=== PATIENT | female | born 2000 | race Caucasian/White ===

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

== ENCOUNTER 2021-06-03 21:33 | Emergency (ER) | payer MEDICAID ==
[2021-06-04] MEDS ORDERED: SODIUM CHLORIDE 0.9% 1000 ML 1,000 ML IV ONE (05:14)
--- NOTE | 2021-06-04 05:27 | Event Note ---
ED Screening Note Date of service: 06/04/21 Time: 05:17 ED Screening Note: Patient is a G2, who presents for right flank pain radiating to right lower extremity x1 week. Patient denies recent fall injury or trauma. Pain is described as 4/10 aching. There is no dysuria frequency or urgency there is no vaginal discharge no vaginal bleeding. Patient denies fevers or chills no vomiting. This initial assessment/diagnostic orders/clinical plan/treatment(s) is/are subject to change based on patients health status, clinical progression and re- assessment by fellow clinical providers in the ED. Further treatment and workup at subsequent clinical providers discretion. Patient/guardian urged not to elope from the ED as their condition may be serious if not clinically assessed and managed. Initial orders include: cbc, cmp, ua, hcg quant, US OB,
--- NOTE | 2021-06-04 06:17 | Ultrasound Report ---
ULTRASOUND OBSTETRIC INDICATION / CLINICAL INFORMATION: abd pos preg. Clinical Gestational Age (GA) in weeks, days: 13, 6 TECHNIQUE: Transabdominal. COMPARISON: None available. FINDINGS: GESTATIONAL SAC: Well-defined oval shape and intrauterine in location. YOLK SAC: Not seen EMBRYO/FETUS: No significant abnormality. - [employer] Length = 8.7 cm = 14, 4 weeks, days - Heart Rate, beats per minute (if present) = 168 ADNEXA: No significant abnormality. FREE FLUID: None. ADDITIONAL FINDINGS: There is a placental cassidy at the lower edge of the placenta. IMPRESSION: 1. Single, living intrauterine with estimated sonographic age of 14, 4 weeks, days. heart tones are noted at 168 bpm Signer Name: Cornell East DO Signed: 06/04/2021 6:13 AM Workstation Name: [id number]
[2021-06-04 06:21] LABS: Basophils % (Auto) 0.6 % (0.0-1.8); Eosinophils % (Auto) 0.4 % (0.0-4.3); Hematocrit 35.3 % (30.3-42.9); Hemoglobin 11.7 gm/dl (10.1-14.3); Lymphocytes # (Auto) 1.1 K/mm3 (1.2-5.4); Lymphocytes % (Auto) 20.9 % (13.4-35.0); Mean Corpuscular HGB Conc 33 % (30-34); Mean Corpuscular Volume 91 fl (79-97); Monocytes # (Auto) 0.4 K/mm3 (0.0-0.8); Monocytes % (Auto) 8.4 % (0.0-7.3); Platelet Count 204 K/mm3 (140-440); Red Blood Count 3.87 M/mm3 (3.65-5.03); Red Cell Distribution Width 12.6 % (13.2-15.2)
[2021-06-04 06:39] LABS: Alanine Aminotransferase 33 units/L (7-56); Albumin 4.3 g/dL (3.9-5); Blood Urea Nitrogen 5 mg/dL (7-17); Calcium 9.5 mg/dL (8.4-10.2); Hemolysis Index 5
[2021-06-04 06:40] LABS: BUN/Creatinine Ratio 10
[2021-06-04] MEDS ORDERED: ACETAMINOPHEN 500 MG TAB PO ONE (07:46)
--- NOTE | 2021-06-04 07:47 | Emergency Department Report ---
ED Abdominal Pain HPI - General Chief Complaint: Abdominal Pain Stated Complaint: ABD/BACK PAIN Time Seen by Provider: 06/04/21 07:42 Source: patient Mode of arrival: Ambulatory Limitations: No Limitations - History of Present Illness Initial Comments: Patient is a G2, who presents for right flank pain radiating to right lower extremity x1 week. She is currently approximately 14 weeks. Patient denies recent fall injury or trauma. Pain is described as 4/10 aching. There is no dysuria frequency or urgency there is no vaginal discharge no vaginal bleeding. She denies associated fever, chills, night sweats, headache, dizziness, blurry vision, nausea, vomit, diarrhea, chest pain, shortness of breath, weakness or any other associated symptoms. - Related Data Previous Rx's Medication Instructions Recorded Last Taken Type Vit-Fe Fumar-FA [ 1 tab PO QDAY #30 tablet 02/13/19 Unknown Rx Vitamin] Ferrous Sulfate [Feosol 325 MG tab] 325 mg PO BID #60 tablet 08/14/19 Unknown Rx Ibuprofen [Motrin] 800 mg PO Q8HR PRN #30 tablet 08/14/19 Unknown Rx Acetaminophen [Acetaminophen TAB] 650 mg PO Q6HR PRN #30 tablet 06/04/21 Unknown Rx Allergies Allergy/AdvReac Type Severity Reaction Status Date / Time No Known Allergies Allergy Verified 06/04/21 00:00 ED Review of Systems ROS: Stated complaint: ABD/BACK PAIN Other details as noted in HPI Constitutional: denies: chills, fever Eyes: denies: eye pain, eye discharge, vision change ENT: denies: ear pain, throat pain Respiratory: denies: cough, shortness of breath, wheezing Cardiovascular: denies: chest pain, palpitations Endocrine: no symptoms reported Gastrointestinal: denies: abdominal pain, nausea, diarrhea Genitourinary: denies: urgency, dysuria, discharge Musculoskeletal: denies: back pain, joint swelling, arthralgia Skin: denies: rash, lesions Neurological: denies: headache, weakness, paresthesias Psychiatric: denies: anxiety, depression Hematological/Lymphatic: denies: easy bleeding, easy bruising ED Past Medical Hx - Past Medical History Hx Hypertension: No Hx Diabetes: No Hx Deep Vein Thrombosis: No Hx Renal Disease: No Hx Sickle Cell Disease: No Hx Seizures: No Hx Asthma: No - Surgical History Past Surgical History?: No - Social History Smoking Status: Never Smoker - Medications Home Medications: Home Medications Medication Instructions Recorded Confirmed Last Taken Type Vit-Fe Fumar-FA [ 1 tab PO QDAY #30 tablet 02/13/19 08/13/19 Unknown Rx Vitamin] Ferrous Sulfate [Feosol 325 MG tab] 325 mg PO BID #60 tablet 08/14/19 Unknown Rx Ibuprofen [Motrin] 800 mg PO Q8HR PRN #30 tablet 08/14/19 Unknown Rx Acetaminophen [Acetaminophen TAB] 650 mg PO Q6HR PRN #30 tablet 06/04/21 Unknown Rx ED Physical Exam - General Limitations: No Limitations General appearance: alert, in no apparent distress - Head Head exam: Present: atraumatic, normocephalic - Eye Eye exam: Present: normal appearance, PERRL, EOMI Pupils: Present: normal accommodation - ENT ENT exam: Present: normal exam, normal orophraynx, mucous membranes moist - Neck Neck exam: Present: normal inspection, full ROM. Absent: tenderness, meningismus - Respiratory Respiratory exam: Present: normal lung sounds bilaterally. Absent: respiratory distress, wheezes, rales, rhonchi, stridor - Cardiovascular Cardiovascular Exam: Present: regular rate, normal rhythm. Absent: systolic murmur, diastolic murmur, rubs, gallop - GI/Abdominal GI/Abdominal exam: Present: soft, normal bowel sounds. Absent: distended, tenderness, guarding, rigid - Extremities Exam Extremities exam: Present: normal inspection, full ROM, normal capillary refill. Absent: tenderness, calf tenderness - Back Exam Back exam: Present: normal inspection, full ROM. Absent: tenderness, CVA tenderness (R), CVA tenderness (L) - Neurological Exam Neurological exam: Present: alert, oriented X3 - Psychiatric Psychiatric exam: Present: normal affect, normal mood - Skin Skin exam: Present: warm, dry, intact, normal color. Absent: rash ED Course Vital Signs 06/03/21 23:58 Temperature 100.3 F H Pulse Rate 143 H Respiratory 17 Rate Blood Pressure 104/46 O2 Sat by Pulse 99 Oximetry - Reevaluation(s) Reevaluation #1: 06/04/21 07:47 Patient well-appearing, nontoxic, ultrasound shows viable intrauterine . Lab work is relatively unremarkable. Urine is pending. Patient given IV fluids and Tylenol and suspect tachycardia is related to fever possibly dehydration. 06/04/21 08:15 The patient's urine relatively normal. I repeated her vitals and her heart rate returned to a much more reasonable level at 104. O2 saturation was normal. Patient felt much better after IV fluids and I will discharge in stable condition home with follow-up with her [employer]. ED Medical Decision Making - Lab Data Result diagrams: 06/04/21 05:47 06/04/21 05:47 Lab Results 06/04/21 06/04/21 06/04/21 Range/Units 05:47 05:47 05:47 WBC 5.3 (4.5-11.0) K/mm3 RBC 3.87 (3.65-5.03) M/mm3 Hgb 11.7 (10.1-14.3) gm/dl Hct 35.3 (30.3-42.9) % MCV 91 (79-97) fl MCH 30 (28-32) pg MCHC 33 (30-34) % RDW 12.6 L (13.2-15.2) % Plt Count 204 (140-440) K/mm3 Lymph % (Auto) 20.9 (13.4-35.0) % Ralls % (Auto) 8.4 H (0.0-7.3) % Eos % (Auto) 0.4 (0.0-4.3) % Baso % (Auto) 0.6 (0.0-1.8) % Lymph # (Auto) 1.1 L (1.2-5.4) K/mm3 Ralls # (Auto) 0.4 (0.0-0.8) K/mm3 Eos # (Auto) 0.0 (0.0-0.4) K/mm3 Baso # (Auto) 0.0 (0.0-0.1) K/mm3 Seg Neutrophils % 69.7 (40.0-70.0) % Seg Neutrophils # 3.7 (1.8-7.7) K/mm3 Sodium 138 (137-145) mmol/L Potassium 3.6 (3.6-5.0) mmol/L Chloride 101.4 (98-107) mmol/L Carbon Dioxide 22 (22-30) mmol/L Anion Gap 18 mmol/L BUN 5 L (7-17) mg/dL Creatinine 0.5 L (0.6-1.2) mg/dL Estimated GFR > 60 ml/min BUN/Creatinine Ratio 10 % Glucose 132 H (65-100) mg/dL Calcium 9.5 (8.4-10.2) mg/dL Total Bilirubin 0.20 (0.1-1.2) mg/dL AST 31 (5-40) units/L ALT 33 (7-56) units/L Alkaline Phosphatase 73 (35-129) units/L Total Protein 7.7 (6.3-8.2) g/dL Albumin 4.3 (3.9-5) g/dL Albumin/Globulin Ratio 1.3 % Lipase 25 (13-60) units/L HCG, Quant 65222 H (0-4) mIU/mL - Radiology Data Radiology results: report reviewed, image reviewed atient: MARIA EUGENIA NULL MR#: [id number] : 2000 Acct:[id number] Age/Sex: 21 / F ADM Date: 06/03/21 Loc: ED Attending Dr: Ordering Physician: KEN REBOLLAR NP Date of Service: 06/04/21 Procedure(s): US OB <= 14 weeks fetus Accession Number(s): [id number] cc: KEN REBOLLAR NP ULTRASOUND OBSTETRIC INDICATION / CLINICAL INFORMATION: abd pos preg. Clinical Gestational Age (GA) in weeks, days: 13, 6 TECHNIQUE: Transabdominal. COMPARISON: None available. FINDINGS: GESTATIONAL SAC: Well-defined oval shape and intrauterine in location. YOLK SAC: Not seen EMBRYO/FETUS: No significant abnormality. - [place]ump Length = 8.7 cm = 14, 4 weeks, days - Heart Rate, beats per minute (if present) = 168 ADNEXA: No significant abnormality. FREE FLUID: None. ADDITIONAL FINDINGS: There is a placental cassidy at the lower edge of the placenta. IMPRESSION: 1. Single, living intrauterine with estimated sonographic age of 14, 4 weeks, days. heart tones are noted at 168 bpm Signer Name: Cornell Alamo DO Signed: 06/04/2021 6:13 AM Workstation Name: [id number] Transcribed By: NS Dictated By: CORNELL ALAMO DO Electronically Authenticated By: CORNELL ALAMO DO Signed Date/Time: 06/04/21 0613 - Medical Decision Making Patient nontoxic no acute distress. Vitals improved with IV fluids. Urine consistent with some dehydration but no infection. Labs were otherwise relatively normal. Ultrasound showed a viable intrauterine . Patient will be given Tylenol for pain, antiemetics and recommend outpatient follow-up with her [employer]. Return to emerge part any change or worsening symptoms. She verbalized understand the diagnosis, treatment plan and follow-up instructions and all of her questions were answered. - Differential Diagnosis UTI, viral syndrome, dehydration Critical care attestation.: If time is entered above; I have spent that time in minutes in the direct care of this critically ill patient, excluding procedure time. ED Disposition Clinical Impression: Abdominal pain during in second trimester Disposition: 01 HOME / SELF CARE / HOMELESS Is pt being admited?: No Condition: Stable Instructions: Abdominal Pain (ED) Prescriptions: Acetaminophen [Acetaminophen TAB] 650 mg PO Q6HR PRN #30 tablet PRN Reason: Pain Referrals: PRIMARY CAREMD [Primary Care Provider] - 3-5 Days [facility] [Provider Group] - 3-5 Days Forms: Work/School Release Form(ED) Time of Disposition: 08:52
[2021-06-04 07:55] LABS: Bacteria,Urine 1+ /HPF (Negative); Bilirubin,Urine NEG (Negative); Blood,Urine NEG (Negative); Color,Urine Yellow (Yellow); Mucus,Urine FEW /HPF; Protein,Urine <15 mg/dL mg/dL (Negative); Urobilinogen,Urine < 2.0 mg/dL (<2.0)
[2021-06-04 09:10] VITALS: BP 96/58
== END 2021-06-04 09:11 | disposition home or self-care (01) ==
LOC: ED 21:33
DX: O26.892 Other specified pregnancy related conditions, second trimester (principal); R10.30 Lower abdominal pain, unspecified; Z3A.14 14 weeks gestation of pregnancy; Z79.899 Other long term (current) drug therapy
CPT/HCPCS: 36415; 76801; 80053; 81001; 83690; 84702; 85025; 96360; 99284; J7030; Q0162

== ENCOUNTER 2021-11-16 18:43 | Outpatient (CLI) | payer MEDICAID ==
[2021-11-16 23:37] VITALS: BP 122/59
== END 2021-11-16 23:37 | disposition home or self-care (01) ==
LOC: TRG 18:43 → LD 18:45 → TRG 23:37
PROVIDERS: ATTEND Obstetrics & Gynecology
DX: O26.93 Pregnancy related conditions, unspecified, third trimester (principal); R10.2 Pelvic and perineal pain; Z3A.37 37 weeks gestation of pregnancy
CPT/HCPCS: 59025

== ENCOUNTER 2021-12-24 12:57 | Emergency (ER) | payer MEDICAID ==
[2021-12-24 13:05] VITALS: BP 124/63
== END 2021-12-24 17:05 | disposition left against medical advice (07) ==
LOC: ED 12:57
DX: R10.9 Unspecified abdominal pain (principal); Z53.21 Procedure and treatment not carried out due to patient leaving prior to being seen by health care provider

== ENCOUNTER 2021-12-29 08:00 | Inpatient (IN) | payer MEDICAID ==
[2021-12-29] MEDS ORDERED: SODIUM CHLORIDE 0.9% 1000 ML 1,000 ML IV ONE (08:20)
[2021-12-29 08:35] LABS: Mucus,Urine 1+ /HPF
[2021-12-29 08:42] LABS: Color,Urine Amber (Yellow)
[2021-12-29 08:43] LABS: Bilirubin,Urine Moderate (Negative); Blood,Urine Negative (Negative); PH,Urine 6.5 (5.0-7.0); Protein,Urine <30 mg dL mg/dL (Negative); Urobilinogen,Urine < 2.0 mg/dL (<2.0)
[2021-12-29 08:46] LABS: Ictotest,Urine Positive (Negative)
[2021-12-29 11:06] LABS: Basophils # (Auto) 0.1 K/mm3 (0.0-0.1); Eosinophils % (Auto) 0.2 % (0.0-4.3); Hematocrit 39.8 % (30.3-42.9); Lymphocytes # (Auto) 1.1 K/mm3 (1.2-5.4); Lymphocytes % (Auto) 9.6 % (13.4-35.0); Mean Corpuscular HGB Conc 33 % (30-34); Mean Corpuscular Volume 81 fl (79-97); Monocytes # (Auto) 0.4 K/mm3 (0.0-0.8); Monocytes % (Auto) 3.4 % (0.0-7.3); Platelet Count 247 K/mm3 (140-440); Red Cell Distribution Width 19.1 % (13.2-15.2)
[2021-12-29 11:19] LABS: Alanine Aminotransferase 380 units/L (7-56); Albumin 4.4 g/dL (3.9-5); BUN/Creatinine Ratio 16; Blood Urea Nitrogen 8 mg/dL (7-17); Calcium 9.1 mg/dL (8.4-10.2); Hemolysis Index 5
[2021-12-29] MEDS ORDERED: MORPHINE 4 MG/1 ML INJ IV ONE (12:15)
[2021-12-29] MEDS ORDERED: ONDANSETRON 4 MG/2 ML INJ IV ONE (12:15)
--- NOTE | 2021-12-29 15:01 | Ultrasound Report ---
LIMITED RUQ ABDOMINAL ULTRASOUND INDICATION: RUQ pain, elevated LFT's. COMPARISON: No relevant prior imaging study available. FINDINGS: Pancreas: Visualized portions show no significant abnormality. Abdominal Aorta: No significant abnormality. IVC: No significant abnormality. Liver: The liver measures 16 cm in length. Diffusely increased hepatic echogenicity which typically i ndicates hepatic steatosis.. Normal hepatopedal blood flow in the main portal vein. Gallbladder: Gallstones in the gallbladder without wall thickening or distention. Bile ducts: Mild ductal dilation. Common bile duct measures 9 mm. Right kidney: No significant abnormality visualized.. Free fluid: None. Additional Findings: None. IMPRESSION: 1. Biliary ductal dilation; correlation with bilirubin level is recommended. 2. Cholelithiasis without evidence of acute cholecystitis. 3. Hepatic steatosis. Signer Name: Bill Rios MD Signed: 12/29/2021 1:32 PM Workstation Name: [id number]
--- NOTE | 2021-12-29 16:46 | Emergency Department Report ---
ED Abdominal Pain HPI - General Chief Complaint: Abdominal Pain Stated Complaint: STOMACH PAIN Time Seen by Provider: 12/29/21 11:46 Source: patient Mode of arrival: Ambulatory Limitations: No Limitations - History of Present Illness Initial Comments: 21-year-old female with no past medical history who is 1 month with vaginal presents to the emergency department for evaluation of 1 week history of intermittent right upper quadrant pain. She states that the pain has been getting progressively worse since Wednesday, she states that she was seen by her primary care provider who summer blood from her being called and told her this morning that she had elevated LFTs. She did not know the exact values. She states that for the past 2 days that she has been unable to eat solid foods because whenever she would eat she has severe pain to her epigastric area and right upper quadrant. She states that she has had some nausea and vomiting but denies fever, dysuria, and vaginal discharge. MD Complaint: abdominal pain -: Gradual, week(s) (1) Location: RUQ, epigastric Radiation: none Migration to: no migration Severity scale (0 -10): 8 Quality: aching Consistency: intermittent Worsens With: eating Associated Symptoms: nausea, vomiting. denies: diarrhea, fever, chills, dysu nevaeh, hematemesis, hematochezia, melena, hematuria, anorexia, syncope - Related Data Previous Rx's Medication Instructions Recorded Last Taken Type Vit-Fe Fumar-FA [ 1 tab PO QDAY #30 tablet 02/13/19 11/21/21 10:00 Rx Vitamin] HYDROcodone/APAP 5-325 [Festus 1 each PO Q6HR PRN #15 tablet 11/24/21 Unknown Rx 5/325] Ibuprofen [Motrin] 800 mg PO Q8HR PRN #30 tablet 11/24/21 Unknown Rx Allergies Allergy/AdvReac Type Severity Reaction Status Date / Time No Known Allergies Allergy Verified 12/29/21 12:11 ED Review of Systems ROS: Stated complaint: STOMACH PAIN Other details as noted in HPI Comment: All other systems reviewed and negative Constitutional: denies: chills, fever, malaise, weakness Eyes: denies: eye pain, vision change ENT: denies: congestion Respiratory: denies: cough, shortness of breath, SOB with exertion, SOB at rest, stridor Cardiovascular: denies: chest pain, palpitations, dyspnea on exertion Gastrointestinal: abdominal pain, nausea, vomiting. denies: diarrhea, hematemesis, melena, hematochezia Genitourinary: denies: urgency, dysuria, frequency, hematuria, discharge Musculoskeletal: denies: back pain Skin: denies: rash, lesions Neurological: denies: headache, weakness ED Past Medical Hx - Past Medical History Hx Hypertension: No Hx Congestive Heart Failure: No Hx Diabetes: No Hx Deep Vein Thrombosis: No Hx Renal Disease: No Hx Sickle Cell Disease: No Hx Seizures: No Hx Asthma: No Hx COPD: No Hx HIV: No - Surgical History Past Surgical History?: No - Social History Smoking Status: Never Smoker - Medications Home Medications: Home Medications Medication Instructions Recorded Confirmed Last Taken Type Vit-Fe Fumar-FA [ 1 tab PO QDAY #30 tablet 02/13/19 11/22/21 11/21/21 10:00 Rx Vitamin] HYDROcodone/APAP 5-325 [Festus 1 each PO Q6HR PRN #15 tablet 11/24/21 Unknown Rx 5/325] Ibuprofen [Motrin] 800 mg PO Q8HR PRN #30 tablet 11/24/21 Unknown Rx ED Physical Exam - General Limitations: No Limitations General appearance: alert, in no apparent distress - Head Head exam: Present: atraumatic, normocephalic - Eye Eye exam: Present: normal appearance. Absent: conjunctival injection, periorbital swelling, periorbital tenderness - Neck Neck exam: Present: normal inspection, full ROM. Absent: tenderness, lymphadenopathy - Respiratory Respiratory exam: Present: normal lung sounds bilaterally. Absent: respiratory distress, wheezes, rales, rhonchi, stridor, chest wall tenderness - Cardiovascular Cardiovascular Exam: Present: tachycardia, normal heart sounds - GI/Abdominal GI/Abdominal exam: Present: soft, tenderness (Epigastric area and right upper quadrant.), normal bowel sounds. Absent: distended, guarding, rebound, rigid - Extremities Exam Extremities exam: Present: normal inspection, full ROM, normal capillary refill. Absent: tenderness, pedal edema, joint swelling, calf tenderness - Back Exam Back exam: Present: normal inspection. Absent: CVA tenderness (R), CVA tenderness (L), vertebral tenderness - Neurological Exam Neurological exam: Present: alert, oriented X3 - Psychiatric Psychiatric exam: Present: normal affect, normal mood - Skin Skin exam: Present: warm, dry, intact, normal color ED Course Vital Signs 12/29/21 12/29/21 08:03 09:47 Temperature 97.9 F Pulse Rate 106 H 83 Respiratory 14 Rate Blood Pressure 88/56 Blood Pressure 125/60 [Left] O2 Sat by Pulse 98 Oximetry ED Medical Decision Making - Lab Data Result diagrams: 12/29/21 10:01 12/29/21 10:01 - Radiology Data Radiology results: report reviewed, image reviewed Ultrasound right upper quadrant: FINDINGS: Pancreas: Visualized portions show no significant abnormality. Abdominal Aorta: No significant abnormality. IVC: No significant abnormality. Liver: The liver measures 16 cm in length. Diffusely increased hepatic echogenicity which typically indicates hepatic steatosis.. Normal hepatopedal blood flow in the main portal vein. Gallbladder: Gallstones in the gallbladder without wall thickening or distention. Bile ducts: Mild ductal dilation. Common bile duct measures 9 mm. Right kidney: No significant abnormality visualized.. Free fluid: None. Additional Findings: None. IMPRESSION: 1. Biliary ductal dilation; correlation with bilirubin level is recommended. 2. Cholelithiasis without evidence of acute cholecystitis. 3. Hepatic steatosis. - Medical Decision Making 21-year-old female with no past medical history who is 1 month with vaginal presents to the emergency department for evaluation of 1 week history of intermittent right upper quadrant pain. She states that the pain has been getting progressively worse since Wednesday, she states that she was seen by her primary care provider who summer blood from her being called and told her this morning that she had elevated LFTs. She did not know the exact values. She states that for the past 2 days that she has been unable to eat solid foods because whenever she would eat she has severe pain to her epigastric area and right upper quadrant. She states that she has had some nausea and vomiting but denies fever, dysuria, and vaginal discharge. Elevated LFTs and lipase. Ultrasound positive for gallstones, dilated common bile duct, and hepatic steatosis. Case discussed with Dr. Sky, hospitalist nocturnist physician, who advised the patient be admitted for gallstone pancreatitis. Spoke with Dr. Celeste, hospitalist, who is going to admit the patient for GI to follow-up and see later. CT scan of abdomen and pelvis and amylase pending. Plan of care reviewed with patient and she verbalized und erstanding of and agreement with. Critical care attestation.: If time is entered above; I have spent that time in minutes in the direct care of this critically ill patient, excluding procedure time. ED Disposition Clinical Impression: Gallstone pancreatitis, Elevated LFTs Disposition: ADMITTED INPATIENT Is pt being admited?: Yes Condition: Stable Instructions: Abdominal Pain (ED) Referrals: SUSANA OSORIO MD [Primary Care Provider] - 3-5 Days
--- NOTE | 2021-12-29 17:40 | Cat Scan Report ---
CT abdomen pelvis wo con INDICATION: elevated LFTs and lipase. COMPARISON: Ultrasound December 29 2021 TECHNIQUE: Abdominal and pelvic CT exam performed. All CT scans at this location are performed using CT dose reduction for ALARA by means of automated exposure control. FINDINGS: CT ABDOMEN and PELVIS: Lung Bases: Minimal bibasilar atelectasis. Liver: Decreased attenuation consistent with mild diffuse hepatic steatosis. Biliary: Common bile duct measures approximately 1 cm. Spleen: No significant abnormality. Pancreas: There is peripancreatic stranding. No organized collection. Adrenals: No significant abnormality. Kidneys: No significant abnormality. Lymphatics: No lymphadenopathy. Vasculature: No significant abnormality. Bowel: No significant abnormality. Normal appendix. Pelvis: No significant abnormality. Osseous Structures: No aggressive osseous lesion. Additional Findings: None IMPRESSION: 1. Acute pancreatitis. 2. No calcified gallstones on CT but there are gallstones seen on ultrasound and the common bile duct measures approximately 1 cm. Please see that report. 3. Mild hepatic steatosis. Signer Name: Izaiah Martin MD Signed: 12/29/2021 5:35 PM Workstation Name: [id number]
[2021-12-29] MEDS ORDERED: ACETAMINOPHEN 325 MG TAB PO PRN (22:22)
[2021-12-29] MEDS ORDERED: ONDANSETRON 4 MG/2 ML INJ IV PRN (22:22)
--- NOTE | 2021-12-29 22:22 | History and Physical Report ---
History of Present Illness Date of examination: 12/29/21 Date of admission: 07/01/2021 Chief complaint: Right upper quadrant pain for 1 day History of present illness: 21-year-old male with no significant past medical history: 1 month status post comes to the emergency room for evaluation of 1 week history of right upper quadrant pain. Right upper quadrant pain is intermittent. Getting progressively worse. Pain is about 8 on a scale of 1-10. Associated with nausea.. Patient saw primary care stated was emergency room because of elevated LFTs. Patient does not have lab results with her. Pain is in the epigastric and right upper quadrant region. Eating is an exacerbating factor. Pain is sharp. No fever. No chills. Nausea present. Vomiting couple times. - Past Medical History --No - Surgical History Past Surgical History?: No - Social History Smoking Status: Never Smoker Review of Systems ROS: Stated complaint: STOMACH PAIN Other details as noted in HPI Comment: All other systems reviewed and negative Constitutional: denies: chills, fever, malaise, weakness Eyes: denies: eye pain, vision change ENT: denies: congestion Respiratory: denies: cough, shortness of breath, SOB with exertion, SOB at rest, stridor Cardiovascular: denies: chest pain, palpitations, dyspnea on exertion Gastrointestinal: abdominal pain, nausea, vomiting. denies: diarrhea, hematemesis, melena, hematochezia Genitourinary: denies: urgency, dysuria, frequency, hematuria, discharge Musculoskeletal: denies: back pain Skin: denies: rash, lesions Neurological: denies: headache, weakness Medications and Allergies Allergies Allergy/AdvReac Type Severity Reaction Status Date / Time No Known Allergies Allergy Verified 12/29/21 12:11 Home Medications Medication Instructions Recorded Confirmed Last Taken Type Vit-Fe Fumar-FA [ 1 tab PO QDAY #30 tablet 02/13/19 11/22/21 11/21/21 10:00 Rx Vitamin] HYDROcodone/APAP 5-325 [Onida 1 each PO Q6HR PRN #15 tablet 11/24/21 Unknown Rx 5/325] Ibuprofen [Motrin] 800 mg PO Q8HR PRN #30 tablet 11/24/21 Unknown Rx Active Meds: Active Medications Sodium Chloride (Nacl 0.9% 1000 Ml) 1,000 mls @ 200 mls/hr IV DIRECT AMARJIT Exam - Constitutional Vitals: Temp Pulse Resp BP Pulse Ox 97.9 F 83 14 125/60 98 12/29/21 08:03 12/29/21 09:47 12/29/21 08:03 12/29/21 09:47 12/29/21 08:03 General appearance: Present: no acute distress, well-nourished - EENT Eyes: Present: PERRL ENT: hearing intact, clear oral mucosa - Neck Neck: Present: supple, normal ROM - Respiratory Respiratory effort: normal Respiratory: bilateral: CTA - Cardiovascular Heart rate: 78 Rhythm: regular Heart Sounds: Present: S1 & S2. Absent: rub, click - Extremities Extremities: pulses symmetrical, No edema Peripheral Pulses: within normal limits - Abdominal General gastrointestinal: Present: soft, tender, non-distended, normal bowel sounds Localized gastrointestinal: tender: RUQ, guarding: RUQ, rebound: RUQ Female genitourinary: Present: normal - Integumentary Integumentary: Present: clear, warm, dry - Musculoskeletal Musculoskeletal: gait normal, strength equal bilaterally - Psychiatric Psychiatric: appropriate mood/affect, intact judgment & insight - Neurologic Neurologic: CNII-XII intact, moves all extremities Results - Labs CBC & Chem 7: 12/29/21 10:01 12/29/21 10:01 Labs: Laboratory Last Values WBC 11.9 K/mm3 (4.5-11.0) H 12/29/21 10:01 RBC 4.90 M/mm3 (3.65-5.03) 12/29/21 10:01 Hgb 13.0 gm/dl (10.1-14.3) 12/29/21 10:01 Hct 39.8 % (30.3-42.9) 12/29/21 10:01 MCV 81 fl (79-97) 12/29/21 10:01 MCH 27 pg (28-32) L 12/29/21 10:01 MCHC 33 % (30-34) 12/29/21 10:01 RDW 19.1 % (13.2-15.2) H 12/29/21 10:01 Plt Count 247 K/mm3 (140-440) 12/29/21 10:01 Lymph % (Auto) 9.6 % (13.4-35.0) L 12/29/21 10:01 Wolfe % (Auto) 3.4 % (0.0-7.3) 12/29/21 10:01 Eos % (Auto) 0.2 % (0.0-4.3) 12/29/21 10:01 Baso % (Auto) 1.0 % (0.0-1.8) 12/29/21 10:01 Lymph # (Auto) 1.1 K/mm3 (1.2-5.4) L 12/29/21 10:01 Wolfe # (Auto) 0.4 K/mm3 (0.0-0.8) 12/29/21 10:01 Eos # (Auto) 0.0 K/mm3 (0.0-0.4) 12/29/21 10:01 Baso # (Auto) 0.1 K/mm3 (0.0-0.1) 12/29/21 10:01 Seg Neutrophils % 85.8 % (40.0-70.0) H 12/29/21 10:01 Seg Neutrophils # 10.2 K/mm3 (1.8-7.7) H 12/29/21 10:01 Sodium 141 mmol/L (137-145) 12/29/21 10:01 Potassium 4.0 mmol/L (3.6-5.0) 12/29/21 10:01 Chloride 104.3 mmol/L (98-107) 12/29/21 10:01 Carbon Dioxide 25 mmol/L (22-30) 12/29/21 10:01 Anion Gap 16 mmol/L 12/29/21 10:01 BUN 8 mg/dL (7-17) 12/29/21 10:01 Creatinine 0.5 mg/dL (0.6-1.2) L 12/29/21 10:01 Estimated GFR > 60 ml/min 12/29/21 10:01 BUN/Creatinine Ratio 16 % 12/29/21 10:01 Glucose 109 mg/dL (65-100) H 12/29/21 10:01 Calcium 9.1 mg/dL (8.4-10.2) 12/29/21 10:01 Total Bilirubin 3.50 mg/dL (0.1-1.2) H 12/29/21 10:01 AST 179 units/L (5-40) H 12/29/21 10:01 ALT 380 units/L (7-56) H 12/29/21 10:01 Alkaline Phosphatase 250 units/L (35-129) H 12/29/21 10:01 Total Protein 7.4 g/dL (6.3-8.2) 12/29/21 10:01 Albumin 4.4 g/dL (3.9-5) 12/29/21 10:01 Albumin/Globulin Ratio 1.5 % 12/29/21 10:01 Lipase 3371 units/L (13-60) H 12/29/21 10:01 Urine Color Jody (Yellow) 12/29/21 Unknown Urine Turbidity Clear (Clear) 12/29/21 Unknown Urine pH 6.5 (5.0-7.0) 12/29/21 Unknown Ur Specific Colton 1.010 (1.003-1.030) 12/29/21 Unknown Urine Protein <30 mg dl mg/dL (Negative) 12/29/21 Unknown Urine Glucose (UA) Negative mg/dL (Negative) 12/29/21 Unknown Urine Ketones Negative mg/dL (Negative) 12/29/21 Unknown Urine Blood Negative (Negative) 12/29/21 Unknown Urine Nitrite Negative (Negative) 12/29/21 Unknown Ur Reducing Substances Not Reportable 12/29/21 Unknown Urine Bilirubin Moderate (Negative) 12/29/21 Unknown Urine Ictotest Positive (Negative) 12/29/21 Unknown Urine Urobilinogen < 2.0 mg/dL (<2.0) 12/29/21 Unknown Ur Leukocyte Esterase Small (Negative) 12/29/21 Unknown Urine WBC (Auto) 6.0 /HPF (0.0-6.0) 12/29/21 Unknown Urine RBC (Auto) 22.0 /HPF (0.0-6.0) 12/29/21 Unknown U Epithel Cells (Auto) 17.0 /HPF (0-13.0) H 12/29/21 Unknown Urine Mucus 1+ /HPF 12/29/21 Unknown Short CBC 12/29/21 Range/Units 10:01 WBC 11.9 H (4.5-11.0) K/mm3 Hgb 13.0 (10.1-14.3) gm/dl Hct 39.8 (30.3-42.9) % Plt Count 247 (140-440) K/mm3 BMP 12/29/21 10:01 Sodium 141 Potassium 4.0 Chloride 104.3 Carbon Dioxide 25 BUN 8 Creatinine 0.5 L Glucose 109 H Calcium 9.1 Liver Function 12/29/21 Range/Units 10:01 Total Bilirubin 3.50 H (0.1-1.2) mg/dL AST 179 H (5-40) units/L ALT 380 H (7-56) units/L Alkaline Phosphatase 250 H (35-129) units/L Albumin 4.4 (3.9-5) g/dL Urine 12/29/21 Range/Units Unknown Urine Color Jody (Yellow) Urine pH 6.5 (5.0-7.0) Ur Specific Colton 1.010 (1.003-1.030) Urine Protein <30 mg dl (Negative) mg/dL Urine Glucose (UA) Negative (Negative) mg/dL - Imaging and Cardiology CT scan - abdomen: report reviewed US - abdomen: report reviewed Imaging and Cardiology: Abdominal ultrasound Biliaryductaldilation correlation with bilirubin level is recommended Cholelithiasis without evidence of acute cholecystitis Hepatic steatosis. Abdominal CAT scan Acute pancreatitis No calcified gallstones on CT but there are gallstones and seen on ultrasound and the common bile duct measures approximately 1 cm. Assessment and Plan Advance Directives: Yes (Full code) VTE prophylaxis?: Chemical Plan of care discussed with patient/family: Yes - Patient Problems (1) Acute pancreatitis Current Visit: Yes Status: Acute Qualifiers: Pancreatitis type: biliary Plan to address problem: Possible gallstone induced pancreatitis Total bilirubin and AST ALT elevated Patient has cholelithiasis also Rule out choledocholithiasis (2) Cholelithiasis Current Visit: Yes Status: Chronic Qualifiers: Cholelithiasis location: gallbladder Plan to address problem: Multiple gallstones No acute cholecystitis Surgical consult requested (3) Transaminitis Current Visit: Yes Status: Acute Plan to address problem: GI consult Possible choledocholithiasis MRCP if necessary Repeat LFTs Pain control (4) DVT prophylaxis Current Visit: Yes Status: Acute Plan to address problem: On heparin and GI prophylaxis (5) Advance care planning Current Visit: Yes Status: Acute Plan to address problem: Disease education conducted, care plan discussed, diagnosis discussed, prognosis discussed and patient acknowledges understanding with care plan of 30 minutes
[2021-12-29] MEDS ORDERED: METOCLOPRAMIDE 10 MG/2 ML INJ IV PRN (22:28)
[2021-12-29] MEDS ORDERED: HYDROmorphone 0.5 MG/0.5 ML INJ IV PRN (22:28)
[2021-12-29] MEDS ORDERED: MORPHINE 2 MG/1 ML INJ IV PRN (22:28)
[2021-12-29] MEDS: HEPARIN 5,000 UNIT/1 ML VIAL SUB-Q SCH (23:57)
[2021-12-30] MEDS: FAMOTIDINE 20 MG/2 ML INJ IV SCH ×3 (00:06→21:45)
[2021-12-30] MEDS: PIPERACIL/TAZOBACTA 4.5/NS 100 4.5 GM/100 ML VIAL IV SCH ×2 (01:48→08:23)
[2021-12-30] MEDS: SODIUM CHLORIDE 0.9% 1000 ML 1,000 ML IV SCH ×2 (06:36→21:45)
[2021-12-30 09:05] LABS: Basophils % (Auto) 0.5 % (0.0-1.8); Eosinophils # (Auto) 0.1 K/mm3 (0.0-0.4); Eosinophils % (Auto) 1.4 % (0.0-4.3); Hematocrit 38.1 % (30.3-42.9); Hemoglobin 12.1 gm/dl (10.1-14.3); Lymphocytes # (Auto) 2.2 K/mm3 (1.2-5.4); Lymphocytes % (Auto) 32.1 % (13.4-35.0); Mean Corpuscular HGB Conc 32 % (30-34); Mean Corpuscular Volume 82 fl (79-97); Monocytes # (Auto) 0.4 K/mm3 (0.0-0.8); Monocytes % (Auto) 5.3 % (0.0-7.3); Platelet Count 232 K/mm3 (140-440); Red Blood Count 4.64 M/mm3 (3.65-5.03); Red Cell Distribution Width 19.3 % (13.2-15.2)
[2021-12-30 09:25] LABS: Alanine Aminotransferase 273 units/L (7-56); Albumin 4.3 g/dL (3.9-5); Blood Urea Nitrogen 11 mg/dL (7-17); Calcium 9.1 mg/dL (8.4-10.2); Hemolysis Index 2
[2021-12-30 09:26] LABS: BUN/Creatinine Ratio 18
[2021-12-30] MEDS: HEPARIN 5,000 UNIT/1 ML VIAL SUB-Q SCH ×2 (09:27→21:45)
--- NOTE | 2021-12-30 10:10 | Gastroenterology Consultation ---
History of Present Illness - Reason for Consult Consult date: 12/30/21 gallstone pancreatitis Requesting physician: SUZAN WRIGHT - History of Present Illness The patient is a 21 yo female who presents with ruq/epigastric abd pain for 5 days. Patient had new onset pain last wednesday. no prior similar abd symptoms. worse with po intake during this interim. denies n/v or fevers/chills. found to have abnormal liver enzymes on admission, and acute pancreatitis by labs/ct scan. stones on imaging/US with dilated CBD. feels better today with less abd pain. she recently delivered her new born son 1 month ago. has 2 year old daughter as well. HD stable. Past History Past Medical History: No medical history Past Surgical History: No surgical history Social history: no significant social history Family history: no significant family history Medications and Allergies Allergies Allergy/AdvReac Type Severity Reaction Status Date / Time No Known Allergies Allergy Verified 12/30/21 09:34 Home Medications Medication Instructions Recorded Confirmed Last Taken Type No Known Home Medications [No 12/30/21 12/30/21 Unknown History Reported Home Medications] Active Meds: Active Medications Acetaminophen (Acetaminophen 325 Mg Tab) 650 mg PO Q4H PRN PRN Reason: Pain MILD(1-3)/Fever >100.5/PATRICK Famotidine (Famotidine 20 Mg/2 Ml Inj) 20 mg IV BID [facility] Last Admin: 12/30/21 09:27 Dose: 20 mg Heparin Sodium (Porcine) (Heparin 5,000 Unit/1 Ml Vial) 5,000 unit SUB-Q Q12HR AMARJIT Last Admin: 12/30/21 09:27 Dose: 5,000 unit Hydromorphone HCl (Hydromorphone 0.5 Mg/0.5 Ml Inj) 1 mg IV Q3H PRN PRN Reason: Pain , Severe (7-10) Sodium Chloride (Nacl 0.9% 1000 Ml) 1,000 mls @ 100 mls/hr IV DIRECT [facility] Last Admin: 12/30/21 06:36 Dose: 100 mls/hr Metoclopramide HCl (Metoclopramide 10 Mg/2 Ml Inj) 10 mg IV Q6H PRN PRN Reason: Nausea And Vomiting Morphine Sulfate (Morphine 2 Mg/1 Ml Inj) 2 mg IV Q4H PRN PRN Reason: Pain, Moderate (4-6) Ondansetron HCl (Ondansetron 4 Mg/2 Ml Inj) 4 mg IV Q3H PRN PRN Reason: Nausea And Vomiting Sodium Chloride (Sodium Chloride 0.9% 10 Ml Flush Syringe) 10 ml IV BID AMARJIT Last Admin: 12/30/21 09:27 Dose: 10 ml Sodium Chloride (Sodium Chloride 0.9% 10 Ml Flush Syringe) 10 ml IV PRN PRN PRN Reason: LINE FLUSH Reviewed/updated patient's home and current medications Review of Systems - Review of Systems All systems: negative (per HPI) Exam - Constitutional Vital Signs: Temp Pulse Resp BP Pulse Ox 98.1 F 60 18 102/53 99 12/30/21 07:59 12/30/21 07:59 12/30/21 07:59 12/30/21 07:59 12/30/21 07:59 General appearance: no acute distress - EENT Eyes: PERRL - Neck Neck: supple - Respiratory Respiratory effort: normal Respiratory: bilateral: CTA - Cardiovascular Rhythm: regular Heart Sounds: Present: S1 & S2 - Gastrointestinal General gastrointestinal: Present: soft, tender (mild epigastric ttp), non- distended, normal bowel sounds - Integumentary Integumentary: Present: clear, warm - Neurologic Neurological: alert and oriented x3 - Psychiatric Psychiatric: appropriate mood/affect - Labs CBC & Chem 7: 12/30/21 08:31 12/30/21 08:31 Lab Results: Laboratory Results - last 24 hr 12/29/21 12/29/21 12/30/21 10:01 10:01 08:31 WBC 11.9 H 6.9 RBC 4.90 4.64 Hgb 13.0 12.1 Hct 39.8 38.1 MCV 81 82 MCH 27 L 26 L MCHC 33 32 RDW 19.1 H 19.3 H Plt Count 247 232 Lymph % (Auto) 9.6 L 32.1 Fisher % (Auto) 3.4 5.3 Eos % (Auto) 0.2 1.4 Baso % (Auto) 1.0 0.5 Lymph # (Auto) 1.1 L 2.2 Fisher # (Auto) 0.4 0.4 Eos # (Auto) 0.0 0.1 Baso # (Auto) 0.1 0.0 Seg Neutrophils % 85.8 H 60.7 Seg Neutrophils # 10.2 H 4.2 Sodium 141 Potassium 4.0 Chloride 104.3 Carbon Dioxide 25 Anion Gap 16 BUN 8 Creatinine 0.5 L Estimated GFR > 60 BUN/Creatinine Ratio 16 Glucose 109 H Calcium 9.1 Total Bilirubin 3.50 H AST 179 H ALT 380 H Alkaline Phosphatase 250 H Total Protein 7.4 Albumin 4.4 Albumin/Globulin Ratio 1.5 Lipase 3371 H 12/30/21 08:31 WBC RBC Hgb Hct MCV MCH MCHC RDW Plt Count Lymph % (Auto) Fisher % (Auto) Eos % (Auto) Baso % (Auto) Lymph # (Auto) Fisher # (Auto) Eos # (Auto) Baso # (Auto) Seg Neutrophils % Seg Neutrophils # Sodium 142 Potassium 4.3 Chloride 107.0 Carbon Dioxide 24 Anion Gap 15 BUN 11 Creatinine 0.6 Estimated GFR > 60 BUN/Creatinine Ratio 18 Glucose 78 Calcium 9.1 Total Bilirubin 1.60 H AST 78 H ALT 273 H Alkaline Phosphatase 221 H Total Protein 6.9 Albumin 4.3 Albumin/Globulin Ratio 1.7 Lipase - Imaging CT Scan: report reviewed Ultrasound: report reviewed Assessment and Plan 1. Acute biliary pancreatitis - clinically reports improved sx's today compared to admission. HD stable. dilated cbd on US with gallstones. liver enzymes improved today, may have passed stone, but will obtain MRCP to evaluate for any retained cbd stone/obstructive process. cont supportive care/IVF's, pain control, can try clears from gi stand point. will need eventual ccy.
--- NOTE | 2021-12-30 12:43 | Magnetic Resonance Report ---
MRI ABDOMEN, MRCP INDICATION / CLINICAL INFORMATION: abnormal liver enzymes, gallstone pancreatitis. TECHNIQUE: Axial and coronal imaging is obtained. Radial MRCP images are obtained. COMPARISON: CT scan dated 12/29/2021 FINDINGS: LOWER CHEST: There is mild atelectasis in the lung bases. LIVER: No significant abnormality. GALLBLADDER: There is cholelithiasis. BILE DUCTS: The common bile duct and intrahepatic ducts are normal in diameter. No filling defects ar e identified within the biliary system. PANCREAS: There is peripancreatic edema and there is fluid noted in the anterior pararenal fascia and in the colic gutters bilaterally characteristic of acute pancreatitis. This finding is similar to th e CT scan performed on 12/29/2021 SPLEEN: No significant abnormality. ADRENALS: No significant abnormality. RIGHT KIDNEY / URETER: No significant abnormality. LEFT KIDNEY / URETER: No significant abnormality. ADDITIONAL FINDINGS: None. SKELETAL SYSTEM: No significant abnormality. IMPRESSION: 1. There is acute pancreatitis. 2. There is cholelithiasis. 3. No common duct stones are seen. Common bile duct is normal in diameter. Signer Name: Cleveland Crowley MD Signed: 12/30/2021 12:39 PM Workstation Name: [email or web address]
--- NOTE | 2021-12-30 13:45 | Consultation ---
History of Present Illness Consult date: 12/30/21 Requesting physician: SUZAN WRIGHT - History of present illness History of present illness: The patient is a 21 yo female who presents with ruq/epigastric abd pain for 5 days. Patient had new onset pain last wednesday. no prior similar abd symptoms. worse with po intake during this interim. denies n/v or fevers/chills. found to have abnormal liver enzymes on admission, and acute pancreatitis by labs/ct scan. stones on imaging/US with dilated CBD. feels better today with less abd pain. she recently delivered her new born son 1 month ago. has 2 year old daughter as well. HD stable. lipase was 3371, total bili on adm was 3.5 is decreased to 1.6. Patient clinically is feeling better. MRCP is pending. Recommend laparoscopic cholecystectomy with IOC as soon his lipase is returned to normal. Past History Past Medical History: No medical history Past Surgical History: No surgical history Social history: no significant social history Family history: no significant family history Medications and Allergies Allergies Allergy/AdvReac Type Severity Reaction Status Date / Time No Known Allergies Allergy Verified 12/30/21 09:34 Home Medications Medication Instructions Recorded Confirmed Last Taken Type No Known Home Medications [No 12/30/21 12/30/21 Unknown History Reported Home Medications] Active Meds: Active Medications Acetaminophen (Acetaminophen 325 Mg Tab) 650 mg PO Q4H PRN PRN Reason: Pain MILD(1-3)/Fever >100.5/PATRICK Famotidine (Famotidine 20 Mg/2 Ml Inj) 20 mg IV BID [facility] Last Admin: 12/30/21 09:27 Dose: 20 mg Heparin Sodium (Porcine) (Heparin 5,000 Unit/1 Ml Vial) 5,000 unit SUB-Q Q12HR AMARJIT Last Admin: 12/30/21 09:27 Dose: 5,000 unit Hydromorphone HCl (Hydromorphone 0.5 Mg/0.5 Ml Inj) 1 mg IV Q3H PRN PRN Reason: Pain , Severe (7-10) Sodium Chloride (Nacl 0.9% 1000 Ml) 1,000 mls @ 100 mls/hr IV DIRECT AMARJIT Last Admin: 12/30/21 06:36 Dose: 100 mls/hr Metoclopramide HCl (Metoclopramide 10 Mg/2 Ml Inj) 10 mg IV Q6H PRN PRN Reason: Nausea And Vomiting Morphine Sulfate (Morphine 2 Mg/1 Ml Inj) 2 mg IV Q4H PRN PRN Reason: Pain, Moderate (4-6) Ondansetron HCl (Ondansetron 4 Mg/2 Ml Inj) 4 mg IV Q3H PRN PRN Reason: Nausea And Vomiting Sodium Chloride (Sodium Chloride 0.9% 10 Ml Flush Syringe) 10 ml IV BID AMARJIT Last Admin: 12/30/21 09:27 Dose: 10 ml Sodium Chloride (Sodium Chloride 0.9% 10 Ml Flush Syringe) 10 ml IV PRN PRN PRN Reason: LINE FLUSH Exam Vital Signs Temp Pulse Resp BP Pulse Ox 97.9 F 106 H 14 88/56 98 12/29/21 08:03 12/29/21 08:03 12/29/21 08:03 12/29/21 08:03 12/29/21 08:03 Results - Labs 12/30/21 08:31 12/30/21 08:31 Abnormal lab results 12/30/21 12/30/21 Range/Units 08:31 08:31 MCH 26 L (28-32) pg RDW 19.3 H (13.2-15.2) % Total Bilirubin 1.60 H (0.1-1.2) mg/dL AST 78 H (5-40) units/L ALT 273 H (7-56) units/L Alkaline Phosphatase 221 H (35-129) units/L Diabetes panel 12/30/21 Range/Units 08:31 Sodium 142 (137-145) mmol/L Potassium 4.3 (3.6-5.0) mmol/L Chloride 107.0 (98-107) mmol/L Carbon Dioxide 24 (22-30) mmol/L BUN 11 (7-17) mg/dL Creatinine 0.6 (0.6-1.2) mg/dL Glucose 78 (65-100) mg/dL Calcium 9.1 (8.4-10.2) mg/dL AST 78 H (5-40) units/L ALT 273 H (7-56) units/L Alkaline Phosphatase 221 H (35-129) units/L Total Protein 6.9 (6.3-8.2) g/dL Albumin 4.3 (3.9-5) g/dL Calcium panel 12/30/21 Range/Units 08:31 Calcium 9.1 (8.4-10.2) mg/dL Albumin 4.3 (3.9-5) g/dL Pituitary panel 12/30/21 Range/Units 08:31 Sodium 142 (137-145) mmol/L Potassium 4.3 (3.6-5.0) mmol/L Chloride 107.0 (98-107) mmol/L Carbon Dioxide 24 (22-30) mmol/L BUN 11 (7-17) mg/dL Creatinine 0.6 (0.6-1.2) mg/dL Glucose 78 (65-100) mg/dL Calcium 9.1 (8.4-10.2) mg/dL Adrenal panel 12/30/21 Range/Units 08:31 Sodium 142 (137-145) mmol/L Potassium 4.3 (3.6-5.0) mmol/L Chloride 107.0 (98-107) mmol/L Carbon Dioxide 24 (22-30) mmol/L BUN 11 (7-17) mg/dL Creatinine 0.6 (0.6-1.2) mg/dL Glucose 78 (65-100) mg/dL Calcium 9.1 (8.4-10.2) mg/dL Total Bilirubin 1.60 H (0.1-1.2) mg/dL AST 78 H (5-40) units/L ALT 273 H (7-56) units/L Alkaline Phosphatase 221 H (35-129) units/L Total Protein 6.9 (6.3-8.2) g/dL Albumin 4.3 (3.9-5) g/dL Assessment and Plan he patient is a 21 yo female who presents with ruq/epigastric abd pain for 5 days. Patient had new onset pain last wednesday. no prior similar abd symptoms. worse with po intake during this interim. denies n/v or fevers/chills. found to have abnormal liver enzymes on admission, and acute pancreatitis by labs/ct scan. stones on imaging/US with dilated CBD. feels better today with less abd pain. she recently delivered her new born son 1 month ago. has 2 year old daughter as well. HD stable. lipase was 3371, total bili on adm was 3.5 is decreased to 1.6. Patient clinically is feeling better. MRCP is pending. Recommend laparoscopic cholecystectomy with IOC as soon his lipase is returned to normal. We will continue to follow with you
--- NOTE | 2021-12-30 18:48 | Progress Note ---
Assessment and Plan Assessment and plan: #Acute gallstone pancreatitisimproving Lipase on presentation 3371. Pending repeat lipase tomorrow morning. CT abdomen and pelvis without contrast remarkable for acute pancreatitis Continue n.p.o. status and analgesics as needed Gastroenterology consulted; appreciate recs. Planning for MRCP tomorrow morning. General surgery consulted; appreciate recs. Recommending laparoscopic cholecystectomy during this hospitalization, but would require patient's labs to return to baseline. Continue to monitor #Elevated transaminasesimproving #Hyperbilirubinemiaimproving On presentation: AST 179, ALT 380, T bili 3.5, alkaline phosphatase 250 Current labs: AST 78, ALT 273, T bili 1.6, alkaline phosphatase 221 Continue to trend with daily CMP #Obesity #Weight loss counseling #Exercise counseling - BMI 32.0 - Counseled patient on the importance of weight loss, incorporating exercise, and dietary changes (lean meats, fresh fruits and vegetables, and water intake). Patient expresses understanding. - Time: +15 min #Advanced care planning -Disease education conducted, care plan discussed, diagnoses discussed, prognosis discussed, and patient acknowledges understanding with care plan -Time: +30 min Disposition Plan: Continue medical management Total Time Spent with Patient (Minutes): 45 minutes History Interval history: No acute events overnight. Hospitalist Physical - Constitutional Vitals: Temp Pulse Resp BP Pulse Ox 98.2 F 66 18 102/46 99 12/30/21 16:26 12/30/21 16:26 12/30/21 16:26 12/30/21 16:26 12/30/21 16:26 General appearance: Present: no acute distress, well-nourished, obese - EENT Eyes: Present: PERRL, EOM intact ENT: hearing intact, clear oral mucosa, dentition normal - Neck Neck: Present: supple, normal ROM - Respiratory Respiratory effort: normal Respiratory: bilateral: CTA - Cardiovascular Rhythm: regular Heart Sounds: Present: S1 & S2 - Extremities Extremities: no ischemia, pulses intact, pulses symmetrical, No edema, normal temperature, normal color, Full ROM Peripheral Pulses: within normal limits - Abdominal General gastrointestinal: soft, tender, non-distended, normal bowel sounds Localized gastrointestinal: tender: RUQ, epigastric periumbilical - Integumentary Integumentary: Present: clear, warm, dry - Psychiatric Psychiatric: appropriate mood/affect, intact judgment & insight, memory intact, cooperative - Neurologic Neurologic: CNII-XII intact, moves all extremities - Allied Health Allied health notes reviewed: nursing Results - Labs CBC & Chem 7: 12/30/21 08:31 12/30/21 08:31 Labs: Laboratory Last Values WBC 6.9 K/mm3 (4.5-11.0) 12/30/21 08:31 RBC 4.64 M/mm3 (3.65-5.03) 12/30/21 08:31 Hgb 12.1 gm/dl (10.1-14.3) 12/30/21 08:31 Hct 38.1 % (30.3-42.9) 12/30/21 08:31 MCV 82 fl (79-97) 12/30/21 08:31 MCH 26 pg (28-32) L 12/30/21 08:31 MCHC 32 % (30-34) 12/30/21 08:31 RDW 19.3 % (13.2-15.2) H 12/30/21 08:31 Plt Count 232 K/mm3 (140-440) 12/30/21 08:31 Lymph % (Auto) 32.1 % (13.4-35.0) 12/30/21 08:31 [place] % (Auto) 5.3 % (0.0-7.3) 12/30/21 08:31 Eos % (Auto) 1.4 % (0.0-4.3) 12/30/21 08:31 Baso % (Auto) 0.5 % (0.0-1.8) 12/30/21 08:31 Lymph # (Auto) 2.2 K/mm3 (1.2-5.4) 12/30/21 08:31 [place] # (Auto) 0.4 K/mm3 (0.0-0.8) 12/30/21 08:31 Eos # (Auto) 0.1 K/mm3 (0.0-0.4) 12/30/21 08:31 Baso # (Auto) 0.0 K/mm3 (0.0-0.1) 12/30/21 08:31 Seg Neutrophils % 60.7 % (40.0-70.0) 12/30/21 08:31 Seg Neutrophils # 4.2 K/mm3 (1.8-7.7) 12/30/21 08:31 Sodium 142 mmol/L (137-145) 12/30/21 08:31 Potassium 4.3 mmol/L (3.6-5.0) 12/30/21 08:31 Chloride 107.0 mmol/L (98-107) 12/30/21 08:31 Carbon Dioxide 24 mmol/L (22-30) 12/30/21 08:31 Anion Gap 15 mmol/L 12/30/21 08:31 BUN 11 mg/dL (7-17) 12/30/21 08:31 Creatinine 0.6 mg/dL (0.6-1.2) 12/30/21 08:31 Estimated GFR > 60 ml/min 12/30/21 08:31 BUN/Creatinine Ratio 18 % 12/30/21 08:31 Glucose 78 mg/dL (65-100) 12/30/21 08:31 Calcium 9.1 mg/dL (8.4-10.2) 12/30/21 08:31 Total Bilirubin 1.60 mg/dL (0.1-1.2) H 12/30/21 08:31 AST 78 units/L (5-40) H 12/30/21 08:31 ALT 273 units/L (7-56) H 12/30/21 08:31 Alkaline Phosphatase 221 units/L (35-129) H 12/30/21 08:31 Total Protein 6.9 g/dL (6.3-8.2) 12/30/21 08:31 Albumin 4.3 g/dL (3.9-5) 12/30/21 08:31 Albumin/Globulin Ratio 1.7 % 12/30/21 08:31 Lipase 3371 units/L (13-60) H 12/29/21 10:01 Urine Color Jody (Yellow) 12/29/21 Unknown Urine Turbidity Clear (Clear) 12/29/21 Unknown Urine pH 6.5 (5.0-7.0) 12/29/21 Unknown Ur Specific [place] 1.010 (1.003-1.030) 12/29/21 Unknown Urine Protein <30 mg dl mg/dL (Negative) 12/29/21 Unknown Urine Glucose (UA) Negative mg/dL (Negative) 12/29/21 Unknown Urine Ketones Negative mg/dL (Negative) 12/29/21 Unknown Urine Blood Negative (Negative) 12/29/21 Unknown Urine Nitrite Negative (Negative) 12/29/21 Unknown Ur Reducing Substances Not Reportable 12/29/21 Unknown Urine Bilirubin Moderate (Negative) 12/29/21 Unknown Urine Ictotest Positive (Negative) 12/29/21 Unknown Urine Urobilinogen < 2.0 mg/dL (<2.0) 12/29/21 Unknown Ur Leukocyte Esterase Small (Negative) 12/29/21 Unknown Urine WBC (Auto) 6.0 /HPF (0.0-6.0) 12/29/21 Unknown Urine RBC (Auto) 22.0 /HPF (0.0-6.0) 12/29/21 Unknown U Epithel Cells (Auto) 17.0 /HPF (0-13.0) H 12/29/21 Unknown Urine Mucus 1+ /HPF 12/29/21 Unknown Active Medications - Current Medications Current Medications: Generic Name Dose Route Start Last Admin Trade Name Freq PRN Reason Stop Dose Admin Acetaminophen 650 mg 12/29/21 22:22 Acetaminophen 325 Mg Tab PO Q4H PRN Pain MILD(1-3)/Fever >100.5/PATRICK Famotidine 20 mg 12/29/21 23:00 12/30/21 09:27 Famotidine 20 Mg/2 Ml Inj IV 20 mg BID AMARJIT Administration Heparin Sodium (Porcine) 5,000 unit 12/30/21 22:00 Heparin 5,000 Unit/1 Ml Vial SUB-Q Q8HR AMARJIT Hydromorphone HCl 1 mg 12/29/21 22:28 Hydromorphone 0.5 Mg/0.5 Ml Inj IV Q3H PRN Pain , Severe (7-10) Sodium Chloride 1,000 mls @ 100 mls/hr 12/29/21 17:00 12/30/21 06:36 Nacl 0.9% 1000 Ml IV 100 mls/hr DIRECT AMARJIT Administration Metoclopramide HCl 10 mg 12/29/21 22:28 Metoclopramide 10 Mg/2 Ml Inj IV Q6H PRN Nausea And Vomiting Morphine Sulfate 2 mg 12/29/21 22:28 Morphine 2 Mg/1 Ml Inj IV Q4H PRN Pain, Moderate (4-6) Ondansetron HCl 4 mg 12/29/21 22:22 Ondansetron 4 Mg/2 Ml Inj IV Q3H PRN Nausea And Vomiting Sodium Chloride 10 ml 12/29/21 23:00 12/30/21 09:27 Sodium Chloride 0.9% 10 Ml Flush Syringe IV 10 ml BID AMARJIT Administration Sodium Chloride 10 ml 12/29/21 22:22 Sodium Chloride 0.9% 10 Ml Flush Syringe IV PRN PRN LINE FLUSH
[2021-12-31] MEDS: HEPARIN 5,000 UNIT/1 ML VIAL SUB-Q SCH ×3 (06:10→21:22)
[2021-12-31 08:13] LABS: Basophils # (Auto) 0.1 K/mm3 (0.0-0.1); Basophils % (Auto) 0.9 % (0.0-1.8); Eosinophils # (Auto) 0.2 K/mm3 (0.0-0.4); Hematocrit 36.5 % (30.3-42.9); Hemoglobin 11.6 gm/dl (10.1-14.3); Lymphocytes # (Auto) 2.3 K/mm3 (1.2-5.4); Lymphocytes % (Auto) 26.9 % (13.4-35.0); Mean Corpuscular HGB Conc 32 % (30-34); Mean Corpuscular Volume 83 fl (79-97); Monocytes # (Auto) 0.4 K/mm3 (0.0-0.8); Monocytes % (Auto) 4.5 % (0.0-7.3); Platelet Count 222 K/mm3 (140-440); Red Blood Count 4.41 M/mm3 (3.65-5.03); Red Cell Distribution Width 19.5 % (13.2-15.2)
[2021-12-31 08:54] LABS: Alanine Aminotransferase 189 units/L (7-56); Albumin 3.9 g/dL (3.9-5); Blood Urea Nitrogen 11 mg/dL (7-17); Calcium 8.9 mg/dL (8.4-10.2); Hemolysis Index 2
[2021-12-31 09:11] LABS: BUN/Creatinine Ratio 22
--- NOTE | 2021-12-31 09:28 | Gastroenterology Progress Note ---
Assessment and Plan 1. acute biliary pancreatitis - clinically doing better. MRCP without signs of retained cbd stones. okay for clears from gi stand point. surgery following for eventual ccy, will defer timing to them. will sign off, please call as needed. Subjective Date of service: 12/31/21 Principal diagnosis: biliary pancreatitis Interval history: pt feeling better, abd pain improving. denies n/v Objective - Constitutional Vitals: Temp Pulse Resp BP Pulse Ox 98.2 F 73 18 114/48 99 12/31/21 03:48 12/31/21 03:48 12/31/21 03:48 12/31/21 03:48 12/31/21 03:48 General appearance: no acute distress - Respiratory Respiratory effort: normal Respiratory: bilateral: CTA - Cardiovascular Rhythm: regular - Gastrointestinal General gastrointestinal: Present: soft, tender (mild epigastric ttp), non-d istended - Neurologic Neurological: alert and oriented x3 - Labs CBC & Chem 7: 12/31/21 05:16 12/31/21 05:16 Labs: Laboratory Results - last 24 hr 12/31/21 12/31/21 05:16 05:16 WBC 8.7 RBC 4.41 Hgb 11.6 Hct 36.5 MCV 83 MCH 26 L MCHC 32 RDW 19.5 H Plt Count 222 Lymph % (Auto) 26.9 [place] % (Auto) 4.5 Eos % (Auto) 2.0 Baso % (Auto) 0.9 Lymph # (Auto) 2.3 [place] # (Auto) 0.4 Eos # (Auto) 0.2 Baso # (Auto) 0.1 Seg Neutrophils % 65.7 Seg Neutrophils # 5.7 Sodium 142 Potassium 4.2 Chloride 107.9 H Carbon Dioxide 22 Anion Gap 16 BUN 11 Creatinine 0.5 L Estimated GFR > 60 BUN/Creatinine Ratio 22 Glucose 54 L Calcium 8.9 Total Bilirubin 1.40 H AST 41 H ALT 189 H Alkaline Phosphatase 192 H Total Protein 7.0 Albumin 3.9 Albumin/Globulin Ratio 1.3 Lipase 121 H - Imaging MRI: report reviewed
[2021-12-31] MEDS: SODIUM CHLORIDE 0.9% 1000 ML 1,000 ML IV SCH ×2 (10:05→20:26)
[2021-12-31] MEDS: FAMOTIDINE 20 MG/2 ML INJ IV SCH ×2 (10:05→21:22)
--- NOTE | 2021-12-31 13:43 | Progress Note ---
Assessment and Plan he patient is a 21 yo female who presents with ruq/epigastric abd pain for 5 days. Patient had new onset pain last wednesday. no prior similar abd symptoms. worse with po intake during this interim. denies n/v or fevers/chills. found to have abnormal liver enzymes on admission, and acute pancreatitis by labs/ct scan. stones on imaging/US with dilated CBD. feels better today with less abd pain. she recently delivered her new born son 1 month ago. has 2 year old daughter as well. HD stable. lipase was 3371, total bili on adm was 3.5 is decreased to 1.6. Lipase improved to 150, Tbili also improved to1.4. MRCP neg for cbd stone. Cont npo or cld. Will do LC/IOC tomorrow. We will continue to follow with you Subjective Date of service: 12/31/21 Patient Reports: Positive: no new complaints, feels better Narrative: Lipase improved to 150, Tbili also improved to1.4. MRCP neg for cbd stone. Cont npo or cld. Will do LC/IOC tomorrow. Objective Vital Signs - 12hr 12/31/21 12/31/21 12/31/21 03:48 08:59 09:00 Temperature 98.2 F 98.4 F Pulse Rate 73 97 H Respiratory 18 18 Rate Blood Pressure 121/64 Blood Pressure 114/48 [Left] O2 Sat by Pulse 99 98 98 Oximetry - Labs 12/31/21 05:16 12/31/21 05:16 Diabetes panel 12/31/21 Range/Units 05:16 Sodium 142 (137-145) mmol/L Potassium 4.2 (3.6-5.0) mmol/L Chloride 107.9 H (98-107) mmol/L Carbon Dioxide 22 (22-30) mmol/L BUN 11 (7-17) mg/dL Creatinine 0.5 L (0.6-1.2) mg/dL Glucose 54 L (65-100) mg/dL Calcium 8.9 (8.4-10.2) mg/dL AST 41 H (5-40) units/L ALT 189 H (7-56) units/L Alkaline Phosphatase 192 H (35-129) units/L Total Protein 7.0 (6.3-8.2) g/dL Albumin 3.9 (3.9-5) g/dL Calcium panel 12/31/21 Range/Units 05:16 Calcium 8.9 (8.4-10.2) mg/dL Albumin 3.9 (3.9-5) g/dL Pituitary panel 12/31/21 Range/Units 05:16 Sodium 142 (137-145) mmol/L Potassium 4.2 (3.6-5.0) mmol/L Chloride 107.9 H (98-107) mmol/L Carbon Dioxide 22 (22-30) mmol/L BUN 11 (7-17) mg/dL Creatinine 0.5 L (0.6-1.2) mg/dL Glucose 54 L (65-100) mg/dL Calcium 8.9 (8.4-10.2) mg/dL Adrenal panel 12/31/21 Range/Units 05:16 Sodium 142 (137-145) mmol/L Potassium 4.2 (3.6-5.0) mmol/L Chloride 107.9 H (98-107) mmol/L Carbon Dioxide 22 (22-30) mmol/L BUN 11 (7-17) mg/dL Creatinine 0.5 L (0.6-1.2) mg/dL Glucose 54 L (65-100) mg/dL Calcium 8.9 (8.4-10.2) mg/dL Total Bilirubin 1.40 H (0.1-1.2) mg/dL AST 41 H (5-40) units/L ALT 189 H (7-56) units/L Alkaline Phosphatase 192 H (35-129) units/L Total Protein 7.0 (6.3-8.2) g/dL Albumin 3.9 (3.9-5) g/dL
--- NOTE | 2021-12-31 14:21 | Anesthesia Consultation ---
Anesthesia Consult and Med Hx Date of service: 12/31/21 - Airway Anesthetic Teeth Evaluation: Good ROM Head & Neck: Adequate Mental/Hyoid Distance: Adequate Mallampati Class: Class I Intubation Access Assessment: Good - Pulmonary Exam CTA: Yes - Cardiac Exam Cardiac Exam: RRR - Pre-Operative Health Status ASA Pre-Surgery Classification: ASA1 Proposed Anesthetic Plan: General - Pulmonary Hx Smoking: No Hx Asthma: No Hx Respiratory Symptoms: No SOB: No COPD: No Home Oxygen Therapy: No Hx Pneumonia: No Hx Sleep Apnea: No - Cardiovascular System Hx Hypertension: No Hx Coronary Artery Disease: No Hx Heart Attack/AMI: No Hx Angina: No Hx Percutaneous Transluminal Coronary Angioplasty (PTCA): No Hx Cardia Arrhythmia: No Hx Pacemaker: No Hx Internal Defibrillator: No Hx Valvular Heart Disease: No Hx Heart Murmur: No Hx Peripheral Vascular Disease: No - Central Nervous System Hx Neuromuscular Disorder: No Hx Seizures: No CVA: No Hx Back Pain: No Hx Psychiatric Problems: No - Gastrointestinal Hx Ulcer: No Hx Gastroesophageal Reflux Disease: No - Endocrine Hx Renal Disease: No Hx End Stage Renal Disease: No Hx Cirrhosis: No Hx Liver Disease: No Hx Insulin Dependent Diabetes: No Hx Non-Insulin Dependent Diabetes: No Hx Thyroid Disease: No Hx Hypothyroidism: No Hx Hyperthyroidism: No - Hematic Hx Anemia: No Hx Sickle Cell Disease: No - Other Systems Hx Alcohol Use: No
--- NOTE | 2021-12-31 17:03 | Progress Note ---
Assessment and Plan Assessment and plan: #Acute gallstone pancreatitisimproving Lipase on presentation 3371-->121 CT abdomen and pelvis without contrast remarkable for acute pancreatitis Continue n.p.o. status and analgesics as needed Gastroenterology consulted; appreciate recs. MRCP unremarkable for choledocholithiasis General surgery consulted; appreciate recs. Recommending laparoscopic cholecystectomy during this hospitalization, but would require patient's labs to return to baseline. Continue to monitor #Elevated transaminasesimproving #Hyperbilirubinemiaimproving On presentation: AST 179, ALT 380, T bili 3.5, alkaline phosphatase 250 Current labs: AST 78, ALT 273, T bili 1.6, alkaline phosphatase 221 Continue to trend with daily CMP #Obesity #Weight loss counseling #Exercise counseling - BMI 32.0 - Counseled patient on the importance of weight loss, incorporating exercise, and dietary changes (lean meats, fresh fruits and vegetables, and water intake). Patient expresses understanding. - Time: +15 min #Advanced care planning -Disease education conducted, care plan discussed, diagnoses discussed, prognosis discussed, and patient acknowledges understanding with care plan -Time: +30 min Disposition Plan: pending laparoscopic cholecystectomy tomorrow with general surgery Total Time Spent with Patient (Minutes): 45 minutes History Interval history: No acute events overnight. Hospitalist Physical - Constitutional Vitals: Temp Pulse Resp BP Pulse Ox 98.4 F 97 H 18 121/64 98 12/31/21 08:59 12/31/21 08:59 12/31/21 08:59 12/31/21 08:59 12/31/21 09:00 General appearance: Present: no acute distress, well-nourished, obese - EENT Eyes: Present: PERRL, EOM intact ENT: hearing intact, clear oral mucosa, dentition normal - Neck Neck: Present: supple, normal ROM - Respiratory Respiratory effort: normal Respiratory: bilateral: CTA - Cardiovascular Rhythm: regular Heart Sounds: Present: S1 & S2 - Extremities Extremities: no ischemia, pulses intact, pulses symmetrical, No edema, normal temperature, normal color, Full ROM Peripheral Pulses: within normal limits - Abdominal General gastrointestinal: soft, non-tender, non-distended, normal bowel sounds - Integumentary Integumentary: Present: clear, warm, dry - Psychiatric Psychiatric: appropriate mood/affect, intact judgment & insight, memory intact, cooperative - Neurologic Neurologic: CNII-XII intact, moves all extremities - Allied Health Allied health notes reviewed: nursing Results - Labs CBC & Chem 7: 12/31/21 05:16 12/31/21 05:16 Labs: Laboratory Last Values WBC 8.7 K/mm3 (4.5-11.0) 12/31/21 05:16 RBC 4.41 M/mm3 (3.65-5.03) 12/31/21 05:16 Hgb 11.6 gm/dl (10.1-14.3) 12/31/21 05:16 Hct 36.5 % (30.3-42.9) 12/31/21 05:16 MCV 83 fl (79-97) 12/31/21 05:16 MCH 26 pg (28-32) L 12/31/21 05:16 MCHC 32 % (30-34) 12/31/21 05:16 RDW 19.5 % (13.2-15.2) H 12/31/21 05:16 Plt Count 222 K/mm3 (140-440) 12/31/21 05:16 Lymph % (Auto) 26.9 % (13.4-35.0) 12/31/21 05:16 [place] % (Auto) 4.5 % (0.0-7.3) 12/31/21 05:16 Eos % (Auto) 2.0 % (0.0-4.3) 12/31/21 05:16 Baso % (Auto) 0.9 % (0.0-1.8) 12/31/21 05:16 Lymph # (Auto) 2.3 K/mm3 (1.2-5.4) 12/31/21 05:16 [place] # (Auto) 0.4 K/mm3 (0.0-0.8) 12/31/21 05:16 Eos # (Auto) 0.2 K/mm3 (0.0-0.4) 12/31/21 05:16 Baso # (Auto) 0.1 K/mm3 (0.0-0.1) 12/31/21 05:16 Seg Neutrophils % 65.7 % (40.0-70.0) 12/31/21 05:16 Seg Neutrophils # 5.7 K/mm3 (1.8-7.7) 12/31/21 05:16 Sodium 142 mmol/L (137-145) 12/31/21 05:16 Potassium 4.2 mmol/L (3.6-5.0) 12/31/21 05:16 Chloride 107.9 mmol/L (98-107) H 12/31/21 05:16 Carbon Dioxide 22 mmol/L (22-30) 12/31/21 05:16 Anion Gap 16 mmol/L 12/31/21 05:16 BUN 11 mg/dL (7-17) 12/31/21 05:16 Creatinine 0.5 mg/dL (0.6-1.2) L 12/31/21 05:16 Estimated GFR > 60 ml/min 12/31/21 05:16 BUN/Creatinine Ratio 22 % 12/31/21 05:16 Glucose 54 mg/dL (65-100) L 12/31/21 05:16 Calcium 8.9 mg/dL (8.4-10.2) 12/31/21 05:16 Total Bilirubin 1.40 mg/dL (0.1-1.2) H 12/31/21 05:16 AST 41 units/L (5-40) H 12/31/21 05:16 ALT 189 units/L (7-56) H 12/31/21 05:16 Alkaline Phosphatase 192 units/L (35-129) H 12/31/21 05:16 Total Protein 7.0 g/dL (6.3-8.2) 12/31/21 05:16 Albumin 3.9 g/dL (3.9-5) 12/31/21 05:16 Albumin/Globulin Ratio 1.3 % 12/31/21 05:16 Lipase 121 units/L (13-60) H 12/31/21 05:16 Urine Color Jody (Yellow) 12/29/21 Unknown Urine Turbidity Clear (Clear) 12/29/21 Unknown Urine pH 6.5 (5.0-7.0) 12/29/21 Unknown Ur Specific [place] 1.010 (1.003-1.030) 12/29/21 Unknown Urine Protein <30 mg dl mg/dL (Negative) 12/29/21 Unknown Urine Glucose (UA) Negative mg/dL (Negative) 12/29/21 Unknown Urine Ketones Negative mg/dL (Negative) 12/29/21 Unknown Urine Blood Negative (Negative) 12/29/21 Unknown Urine Nitrite Negative (Negative) 12/29/21 Unknown Ur Reducing Substances Not Reportable 12/29/21 Unknown Urine Bilirubin Moderate (Negative) 12/29/21 Unknown Urine Ictotest Positive (Negative) 12/29/21 Unknown Urine Urobilinogen < 2.0 mg/dL (<2.0) 12/29/21 Unknown Ur Leukocyte Esterase Small (Negative) 12/29/21 Unknown Urine WBC (Auto) 6.0 /HPF (0.0-6.0) 12/29/21 Unknown Urine RBC (Auto) 22.0 /HPF (0.0-6.0) 12/29/21 Unknown U Epithel Cells (Auto) 17.0 /HPF (0-13.0) H 12/29/21 Unknown Urine Mucus 1+ /HPF 12/29/21 Unknown Active Medications - Current Medications Current Medications: Generic Name Dose Route Start Last Admin Trade Name Freq PRN Reason Stop Dose Admin Acetaminophen 650 mg 12/29/21 22:22 Acetaminophen 325 Mg Tab PO Q4H PRN Pain MILD(1-3)/Fever >100.5/PATRICK Famotidine 20 mg 12/29/21 23:00 12/31/21 10:05 Famotidine 20 Mg/2 Ml Inj IV 20 mg BID AMARJIT Administration Heparin Sodium (Porcine) 5,000 unit 12/30/21 22:00 12/31/21 15:11 Heparin 5,000 Unit/1 Ml Vial SUB-Q 5,000 unit Q8HR AMARJIT Administration Hydromorphone HCl 1 mg 12/29/21 22:28 Hydromorphone 0.5 Mg/0.5 Ml Inj IV Q3H PRN Pain , Severe (7-10) Sodium Chloride 1,000 mls @ 100 mls/hr 12/29/21 17:00 12/31/21 10:05 Nacl 0.9% 1000 Ml IV 100 mls/hr DIRECT AMARJIT Administration Metoclopramide HCl 10 mg 12/29/21 22:28 Metoclopramide 10 Mg/2 Ml Inj IV Q6H PRN Nausea And Vomiting Morphine Sulfate 2 mg 12/29/21 22:28 Morphine 2 Mg/1 Ml Inj IV Q4H PRN Pain, Moderate (4-6) Ondansetron HCl 4 mg 12/29/21 22:22 Ondansetron 4 Mg/2 Ml Inj IV Q3H PRN Nausea And Vomiting Sodium Chloride 10 ml 12/29/21 23:00 12/31/21 10:05 Sodium Chloride 0.9% 10 Ml Flush Syringe IV 10 ml BID AMARJIT Administration Sodium Chloride 10 ml 12/29/21 22:22 Sodium Chloride 0.9% 10 Ml Flush Syringe IV PRN PRN LINE FLUSH
[2022-01-01 04:29] LABS: Basophils % (Auto) 0.4 % (0.0-1.8); Eosinophils # (Auto) 0.2 K/mm3 (0.0-0.4); Eosinophils % (Auto) 2.4 % (0.0-4.3); Hematocrit 37.4 % (30.3-42.9); Hemoglobin 11.9 gm/dl (10.1-14.3); Lymphocytes # (Auto) 2.9 K/mm3 (1.2-5.4); Lymphocytes % (Auto) 34.7 % (13.4-35.0); Mean Corpuscular HGB Conc 32 % (30-34); Mean Corpuscular Volume 82 fl (79-97); Monocytes # (Auto) 0.5 K/mm3 (0.0-0.8); Monocytes % (Auto) 6.1 % (0.0-7.3); Platelet Count 236 K/mm3 (140-440); Red Blood Count 4.55 M/mm3 (3.65-5.03); Red Cell Distribution Width 18.7 % (13.2-15.2)
[2022-01-01 04:49] LABS: Alanine Aminotransferase 152 units/L (7-56); Albumin 4.2 g/dL (3.9-5); Blood Urea Nitrogen 6 mg/dL (7-17); Calcium 9.3 mg/dL (8.4-10.2); Hemolysis Index 3
[2022-01-01 04:51] LABS: BUN/Creatinine Ratio 15
[2022-01-01] MEDS: SODIUM CHLORIDE 0.9% 1000 ML 1,000 ML IV SCH ×3 (05:39→21:32)
[2022-01-01] MEDS: HEPARIN 5,000 UNIT/1 ML VIAL SUB-Q SCH ×3 (05:39→21:33)
[2022-01-01] MEDS ORDERED: dexAMETHasone 20 MG/5 ML VIAL ONE (07:37)
[2022-01-01] MEDS ORDERED: KETOROLAC 30 MG/1 ML INJ ONE (07:37)
[2022-01-01] MEDS ORDERED: LIDOCAINE MPF (2%) 20 MG/1 ML VIAL 5 ML ONE (07:37)
[2022-01-01] MEDS ORDERED: ONDANSETRON 4 MG/2 ML INJ ONE (07:37)
[2022-01-01] MEDS ORDERED: propofoL 200 MG/20 ML VIAL IV ONE (07:38)
[2022-01-01] MEDS ORDERED: KETAMINE/STERILE WATER 50 MG/ML SYRINGE ONE (07:38)
[2022-01-01] MEDS ORDERED: fentaNYL 100 MCG/2 ML INJ ONE ×2 (07:38→09:29)
[2022-01-01] MEDS ORDERED: BUPIVACAINE-EPINEPHRINE/PF 0.5%-1:200,000 (30 ML) VIAL INFILTRATI ONE (07:54)
[2022-01-01] MEDS ORDERED: SODIUM CHLORIDE 0.9% 100 ML ONE (07:54)
[2022-01-01] MEDS ORDERED: LIDOCAINE (1%) 10 MG/1 ML VIAL 20 ML MDV ONE (07:54)
[2022-01-01] MEDS ORDERED: MIDAZOLAM 2 MG/2 ML INJ ONE ×2 (08:10→10:15)
[2022-01-01] MEDS ORDERED: BUPIVACAINE/PF (0.5%) 5 MG/1 ML 30 ML VIAL INFILTRATI ONE ×2 (08:11→09:16)
[2022-01-01] MEDS ORDERED: HYDROmorphone 0.5 MG/0.5 ML INJ ONE (09:08)
[2022-01-01] MEDS ORDERED: IOHEXOL 300 MG/ML 50ML IV ONE (09:17)
[2022-01-01] MEDS ORDERED: SODIUM CHLORIDE 0.9% 100 ML IVPB IV ONE (09:17)
[2022-01-01] MEDS ORDERED: LIDOCAINE (1%) 10 MG/1 ML VIAL 20 ML MDV INFILTRATI ONE (09:17)
[2022-01-01] MEDS ORDERED: SODIUM CHLORIDE 0.9% IRR 1,500 ML BOTTLE IR ONE (09:18)
[2022-01-01] MEDS ORDERED: GLUCAGON (HUMAN RECOMBINANT) 1 MG/ML INJ ONE (09:35)
[2022-01-01] MEDS ORDERED: LACTATED RINGERS 1,000 ML ONE ×2 (09:41→09:57)
[2022-01-01] MEDS ORDERED: SUGAMMADEX SODIUM 200 MG/2 ML VIAL IV ONE (09:44)
[2022-01-01] MEDS ORDERED: ROCURONIUM 50 MG/5 ML INJ IV ONE ×2 (09:57)
[2022-01-01] MEDS ORDERED: HYDROmorphone 0.5 MG/0.5 ML INJ IV PRN (10:10)
--- NOTE | 2022-01-01 10:16 | Operative Report ---
Operative Report Operative Report: Date: 01/01/2022 Preop diagnosis: cholecystitis with cholelithiasis, recent gallstone pancreatitis Postop diagnosis: same Procedure: Laparoscopic cholecystectomy with cholangiogram Surgeon: Dr. Mcfarlane Appeals And Generalist Clerk: Dr. Pierce Anesthesia type: General endotracheal anesthesia Estimated blood loss: 10 cc Specimen: Gallbladder and stone Procedure: Patient is taken to the OR and after timeout are completed the abdomen was prepped with ChloraPrep and draped in a sterile fashion. A 3 mm incision is made in the left upper quadrant a Veress needle was used to gain access the peritoneal cavity. Abdomen is insufflated with CO2. A 5 mm incision is made in the right subcostal position midclavicular line. 2 additional 5 mm ports were placed one in the right lateral subcostal position and one in a supraumbilical position. In the subxiphoid position a 12 mm port is placed. Gallbladder graspers are used through the right subcostal ports. Adhesions over the top of the liver on the right side are noted. The gallbladder was retracted superiorly anteriorly and laterally. The peritoneal reflection and adventitia are dissected with a harmonic scalpel to expose the cystic duct and cystic artery as well as the cystic cleft. Critical view of safety is demonstrated. The cystic artery is clipped and divid ed. A clip was placed on the cystic duct at its junction with the gallbladder. A taut catheter is placed into the cystic duct through a 4 mm incision. It is held in position by the cholangiogram cystic duct grasper. With fluoroscopy a intraoperative cholangiogram is obtained. Cystic duct and its confluence with the common duct are seen. Entire common bile duct is seen. No common bile duct stones are seen. The left and right intrahepatic ducts are seen. These are also normal. There is some delay of drainage of the contrast into the duodenum. This is not from any apparent stone. Milligram of glucagon is given IV. Some contrast is seen in the duodenum at that time. The cholangiogram catheter was removed and the procedure is ended. 2 clips were placed on the distal cystic duct. The cystic duct was then divided. The gallbladder was dissected off the gallbladder fossa It was then extracted after being placed in a specimen bag through the subxiphoid port. Hemostasis is good as and is improved with the electrocautery hook. The right upper quadrant irrigated with copious amounts of saline and then aspirated. Sponge and needle counts are noted to be correct at this time. A Oncovision system was used to close the subxiphoid incision with an 0 Vicryl suture. The skin is closed with 4-0 Monocryl and Dermabond. Patient tolerated procedure well.
--- NOTE | 2022-01-01 11:01 | Fluoroscopy Report ---
[place] cholangiogram operative INDICATION / CLINICAL INFORMATION: ABDOMINAL PAIN. COMPARISON: None available. FINDINGS: Injection of the bile duct was performed intraoperatively demonstrating mild prominence of the bile d uct likely due to distention. No filling defect or obstruction. Fluoroscopy time: 54 seconds. Fluoroscopic images: 5. Signer Name: Artie Morales MD Signed: 01/01/2022 10:57 AM Workstation Name: [id number]
--- NOTE | 2022-01-01 11:24 | Post Anesthesia Evaluation ---
- Post Anesthesia Evaluation Patient Participated: Yes Airway Patent: Yes Stable Respiratory Function: Yes Nausea/Vomiting: No Temp > 96.8F: Yes Pain Manageable: Yes Adequeate Hydration: Yes Anesthesia Complications: No Block Receding Appropriately: Not Applicable Patient on Ventilator: No
[2022-01-01] MEDS: FAMOTIDINE 20 MG/2 ML INJ IV SCH ×2 (13:15→21:33)
--- NOTE | 2022-01-01 17:13 | Progress Note ---
Assessment and Plan Assessment and plan: #Acute gallstone pancreatitisresolved Lipase on presentation 3371-->121 CT abdomen and pelvis without contrast remarkable for acute pancreatitis Continue n.p.o. status and analgesics as needed Gastroenterology consulted; appreciate recs. MRCP unremarkable for choledocholithiasis General surgery consulted; appreciate recs. S/p laparoscopic cholecystectomy (01/01/2022). Continue to monitor #Elevated transaminasesimproving #Hyperbilirubinemiaimproving On presentation: AST 179, ALT 380, T bili 3.5, alkaline phosphatase 250 Current labs: AST 78, ALT 273, T bili 1.6, alkaline phosphatase 221 Continue to trend with daily CMP #Obesity #Weight loss counseling #Exercise counseling - BMI 32.0 - Counseled patient on the importance of weight loss, incorporating exercise, and dietary changes (lean meats, fresh fruits and vegetables, and water intake). Patient expresses understanding. - Time: +15 min #Advanced care planning -Disease education conducted, care plan discussed, diagnoses discussed, prognosis discussed, and patient acknowledges understanding with care plan -Time: +30 min #Discharge planning - Patient is pending 24 hours status post laparoscopic cholecystectomy. - Case management has been made aware. - Discharge is tentatively tomorrow. Disposition Plan: Pending possible discharge home tomorrow Total Time Spent with Patient (Minutes): 45 minutes History Interval history: No acute events overnight. Hospitalist Physical - Constitutional Vitals: Temp Pulse Resp BP Pulse Ox 97.8 F 89 14 125/71 94 01/01/22 11:28 01/01/22 11:28 01/01/22 11:28 01/01/22 11:28 01/01/22 11:28 General appearance: Present: no acute distress, well-nourished, obese - EENT Eyes: Present: PERRL, EOM intact ENT: hearing intact, clear oral mucosa, dentition normal - Neck Neck: Present: supple, normal ROM - Respiratory Respiratory effort: normal Respiratory: bilateral: CTA - Cardiovascular Rhythm: regular Heart Sounds: Present: S1 & S2 - Extremities Extremities: no ischemia, pulses intact, pulses symmetrical, No edema, normal temperature, normal color, Full ROM Peripheral Pulses: within normal limits - Abdominal General gastrointestinal: soft, non-tender, non-distended, normal bowel sounds - Integumentary Integumentary: Present: clear, warm, dry - Psychiatric Psychiatric: appropriate mood/affect, intact judgment & insight, memory intact, cooperative - Neurologic Neurologic: CNII-XII intact, moves all extremities - Allied Health Allied health notes reviewed: nursing Results - Labs CBC & Chem 7: 01/01/22 03:32 01/01/22 03:32 Labs: Laboratory Last Values WBC 8.3 K/mm3 (4.5-11.0) 01/01/22 03:32 RBC 4.55 M/mm3 (3.65-5.03) 01/01/22 03:32 Hgb 11.9 gm/dl (10.1-14.3) 01/01/22 03:32 Hct 37.4 % (30.3-42.9) 01/01/22 03:32 MCV 82 fl (79-97) 01/01/22 03:32 MCH 26 pg (28-32) L 01/01/22 03:32 MCHC 32 % (30-34) 01/01/22 03:32 RDW 18.7 % (13.2-15.2) H 01/01/22 03:32 Plt Count 236 K/mm3 (140-440) 01/01/22 03:32 Lymph % (Auto) 34.7 % (13.4-35.0) 01/01/22 03:32 [place] % (Auto) 6.1 % (0.0-7.3) 01/01/22 03:32 Eos % (Auto) 2.4 % (0.0-4.3) 01/01/22 03:32 Baso % (Auto) 0.4 % (0.0-1.8) 01/01/22 03:32 Lymph # (Auto) 2.9 K/mm3 (1.2-5.4) 01/01/22 03:32 [place] # (Auto) 0.5 K/mm3 (0.0-0.8) 01/01/22 03:32 Eos # (Auto) 0.2 K/mm3 (0.0-0.4) 01/01/22 03:32 Baso # (Auto) 0.0 K/mm3 (0.0-0.1) 01/01/22 03:32 Seg Neutrophils % 56.4 % (40.0-70.0) 01/01/22 03:32 Seg Neutrophils # 4.7 K/mm3 (1.8-7.7) 01/01/22 03:32 Sodium 137 mmol/L (137-145) 01/01/22 03:32 Potassium 4.3 mmol/L (3.6-5.0) 01/01/22 03:32 Chloride 102.5 mmol/L (98-107) 01/01/22 03:32 Carbon Dioxide 22 mmol/L (22-30) 01/01/22 03:32 Anion Gap 17 mmol/L 01/01/22 03:32 BUN 6 mg/dL (7-17) L 01/01/22 03:32 Creatinine 0.4 mg/dL (0.6-1.2) L 01/01/22 03:32 Estimated GFR > 60 ml/min 01/01/22 03:32 BUN/Creatinine Ratio 15 % 01/01/22 03:32 Glucose 71 mg/dL (65-100) 01/01/22 03:32 Calcium 9.3 mg/dL (8.4-10.2) 01/01/22 03:32 Total Bilirubin 1.50 mg/dL (0.1-1.2) H 01/01/22 03:32 AST 32 units/L (5-40) 01/01/22 03:32 ALT 152 units/L (7-56) H 01/01/22 03:32 Alkaline Phosphatase 201 units/L (35-129) H 01/01/22 03:32 Total Protein 7.3 g/dL (6.3-8.2) 01/01/22 03:32 Albumin 4.2 g/dL (3.9-5) 01/01/22 03:32 Albumin/Globulin Ratio 1.4 % 01/01/22 03:32 Lipase 121 units/L (13-60) H 12/31/21 05:16 Urine Color Jody (Yellow) 12/29/21 Unknown Urine Turbidity Clear (Clear) 12/29/21 Unknown Urine pH 6.5 (5.0-7.0) 12/29/21 Unknown Ur Specific [place] 1.010 (1.003-1.030) 12/29/21 Unknown Urine Protein <30 mg dl mg/dL (Negative) 12/29/21 Unknown Urine Glucose (UA) Negative mg/dL (Negative) 12/29/21 Unknown Urine Ketones Negative mg/dL (Negative) 12/29/21 Unknown Urine Blood Negative (Negative) 12/29/21 Unknown Urine Nitrite Negative (Negative) 12/29/21 Unknown Ur Reducing Substances Not Reportable 12/29/21 Unknown Urine Bilirubin Moderate (Negative) 12/29/21 Unknown Urine Ictotest Positive (Negative) 12/29/21 Unknown Urine Urobilinogen < 2.0 mg/dL (<2.0) 12/29/21 Unknown Ur Leukocyte Esterase Small (Negative) 12/29/21 Unknown Urine WBC (Auto) 6.0 /HPF (0.0-6.0) 12/29/21 Unknown Urine RBC (Auto) 22.0 /HPF (0.0-6.0) 12/29/21 Unknown U Epithel Cells (Auto) 17.0 /HPF (0-13.0) H 12/29/21 Unknown Urine Mucus 1+ /HPF 12/29/21 Unknown Cook/IV: Voiding Method Toilet Active Medications - Current Medications Current Medications: Generic Name Dose Route Start Last Admin Trade Name Freq PRN Reason Stop Dose Admin Acetaminophen 650 mg 12/29/21 22:22 Acetaminophen 325 Mg Tab PO Q4H PRN Pain MILD(1-3)/Fever >100.5/PATRICK Famotidine 20 mg 12/29/21 23:00 01/01/22 13:15 Famotidine 20 Mg/2 Ml Inj IV 20 mg BID AMARJIT Administration Heparin Sodium (Porcine) 5,000 unit 12/30/21 22:00 01/01/22 13:15 Heparin 5,000 Unit/1 Ml Vial SUB-Q 5,000 unit Q8HR AMARJIT Administration Hydromorphone HCl 1 mg 12/29/21 22:28 Hydromorphone 0.5 Mg/0.5 Ml Inj IV Q3H PRN Pain , Severe (7-10) Hydromorphone HCl 0.25 mg 01/01/22 10:10 01/01/22 10:51 Hydromorphone 0.5 Mg/0.5 Ml Inj IV 01/01/22 23:00 0.25 mg Q10MIN PRN Administration Pain , Severe (7-10) Sodium Chloride 1,000 mls @ 100 mls/hr 12/29/21 17:00 01/01/22 11:03 Nacl 0.9% 1000 Ml IV 100 mls/hr DIRECT AMARJIT Administration Metoclopramide HCl 10 mg 12/29/21 22:28 Metoclopramide 10 Mg/2 Ml Inj IV Q6H PRN Nausea And Vomiting Morphine Sulfate 2 mg 12/29/21 22:28 Morphine 2 Mg/1 Ml Inj IV Q4H PRN Pain, Moderate (4-6) Ondansetron HCl 4 mg 12/29/21 22:22 Ondansetron 4 Mg/2 Ml Inj IV Q3H PRN Nausea And Vomiting Sodium Chloride 10 ml 12/29/21 23:00 01/01/22 13:16 Sodium Chloride 0.9% 10 Ml Flush Syringe IV 10 ml BID AMARJIT Administration Sodium Chloride 10 ml 12/29/21 22:22 Sodium Chloride 0.9% 10 Ml Flush Syringe IV PRN PRN LINE FLUSH
[2022-01-02] MEDS: HEPARIN 5,000 UNIT/1 ML VIAL SUB-Q SCH (05:54)
[2022-01-02 06:00] LABS: Basophils % (Auto) 0.5 % (0.0-1.8); Eosinophils % (Auto) 0.2 % (0.0-4.3); Hematocrit 34.1 % (30.3-42.9); Hemoglobin 11.2 gm/dl (10.1-14.3); Lymphocytes # (Auto) 3.1 K/mm3 (1.2-5.4); Lymphocytes % (Auto) 37.3 % (13.4-35.0); Mean Corpuscular HGB Conc 33 % (30-34); Mean Corpuscular Volume 81 fl (79-97); Monocytes # (Auto) 0.6 K/mm3 (0.0-0.8); Monocytes % (Auto) 7.4 % (0.0-7.3); Platelet Count 264 K/mm3 (140-440); Red Cell Distribution Width 19.2 % (13.2-15.2)
[2022-01-02 06:23] LABS: Alanine Aminotransferase 130 units/L (7-56); Albumin 3.9 g/dL (3.9-5); Blood Urea Nitrogen 5 mg/dL (7-17); Hemolysis Index 0
[2022-01-02 06:26] LABS: BUN/Creatinine Ratio 10
[2022-01-02 06:41] VITALS: BP 150/75
--- NOTE | 2022-01-02 09:11 | Progress Note ---
Assessment and Plan pt sp LC/OIC. She feels well this am and is tolerating diet. OK to dc. Fu with me in one week via telemed. Subjective Date of service: 01/02/22 Patient Reports: Positive: no new complaints, feels better Narrative: pt sp LC/OIC. She feels well this am and is tolerating diet. OK to dc. Fu with me in one week via telemed. Objective Vital Signs - 12hr 01/01/22 01/02/22 01/02/22 23:19 01:56 03:49 Temperature 98.7 F 97.9 F Pulse Rate 73 67 Respiratory 16 17 15 Rate Blood Pressure 107/57 110/58 Blood Pressure [Left] O2 Sat by Pulse 97 97 Oximetry 01/02/22 01/02/22 03:54 04:58 Temperature 97.4 F L 97.9 F Pulse Rate 65 67 Respiratory 21 15 Rate Blood Pressure 150/75 Blood Pressure 110/58 [Left] O2 Sat by Pulse 97 97 Oximetry - Labs 01/02/22 05:12 01/02/22 05:12 Diabetes panel 01/02/22 Range/Units 05:12 Sodium 139 (137-145) mmol/L Potassium 3.8 (3.6-5.0) mmol/L Chloride 104.3 (98-107) mmol/L Carbon Dioxide 23 (22-30) mmol/L BUN 5 L (7-17) mg/dL Creatinine 0.5 L (0.6-1.2) mg/dL Glucose 84 (65-100) mg/dL Calcium 9.0 (8.4-10.2) mg/dL AST 54 H (5-40) units/L ALT 130 H (7-56) units/L Alkaline Phosphatase 176 H (35-129) units/L Total Protein 7.1 (6.3-8.2) g/dL Albumin 3.9 (3.9-5) g/dL Calcium panel 01/02/22 Range/Units 05:12 Calcium 9.0 (8.4-10.2) mg/dL Albumin 3.9 (3.9-5) g/dL Pituitary panel 01/02/22 Range/Units 05:12 Sodium 139 (137-145) mmol/L Potassium 3.8 (3.6-5.0) mmol/L Chloride 104.3 (98-107) mmol/L Carbon Dioxide 23 (22-30) mmol/L BUN 5 L (7-17) mg/dL Creatinine 0.5 L (0.6-1.2) mg/dL Glucose 84 (65-100) mg/dL Calcium 9.0 (8.4-10.2) mg/dL Adrenal panel 01/02/22 Range/Units 05:12 Sodium 139 (137-145) mmol/L Potassium 3.8 (3.6-5.0) mmol/L Chloride 104.3 (98-107) mmol/L Carbon Dioxide 23 (22-30) mmol/L BUN 5 L (7-17) mg/dL Creatinine 0.5 L (0.6-1.2) mg/dL Glucose 84 (65-100) mg/dL Calcium 9.0 (8.4-10.2) mg/dL Total Bilirubin 1.00 (0.1-1.2) mg/dL AST 54 H (5-40) units/L ALT 130 H (7-56) units/L Alkaline Phosphatase 176 H (35-129) units/L Total Protein 7.1 (6.3-8.2) g/dL Albumin 3.9 (3.9-5) g/dL
[2022-01-02] MEDS: FAMOTIDINE 20 MG/2 ML INJ IV SCH (10:30)
--- NOTE | 2022-01-02 11:02 | Discharge Summary ---
Providers - Providers Date of Admission: 12/29/21 22:22 Date of discharge: 01/02/22 Attending physician: SUZAN WRIGHT MD 12/29/21 16:58 Consult to Physician [CONS] Stat Comment: Consulting Provider: STANISLAW SOLARES Physician Instructions: admit for gallstone pancreastitis, IVF at 200 ml/h Reason For Exam: elevated lfts and lipase 12/30/21 10:17 Consult to Physician [CONS] Routine Comment: Consulting Provider: SHARON BOB Physician Instructions: Reason For Exam: Gallstone pancreatitis Primary care physician: SUSANA OSORIO Hospitalization Reason for admission: Acute gallstone pancreatitis; hyperbilirubinemia Condition: Stable Pertinent studies: Reviewed. Procedures: Laproscopic cholecystectomy Hospital course: Patient is a 21-year-old female with past medical history significant for obesity who presented with 1 week of right upper quadrant tenderness that progressively worsened to epigastric pain rated 8 out of 10. Patient also endorsed having nausea and worsening abdominal cramping with meals. She descri bed the pain as sharp and piercing in nature. In the ED the patient was found to be hemodynamically stable, and her labs were remarkable for a leukocytosis of 11.9 and lipase 3[address]. Patient underwent CT abdomen and pelvis without contrast that was remarkable for acute pancreatitis. Patient also underwent abdominal ultrasound revealing "biliary ductal dilatation; cholelithiasis without evidence of acute cholecystitis; hepatic steatosis". Gastroenterology was consulted for further management. Patient underwent MRCP that was unremarkable for retained common bile duct stones. General surgery was consulted, and the patient underwent laparoscopic cholecystectomy on 01/01/2022 without incident. Patient is relatively pain-free. Patient will follow up with general surgery in the outpatient setting in approximately 1 week via [facility] visit. Patient expressed understanding. Patient is medically clear for discharge. Disposition: 01 HOME / SELF CARE / HOMELESS Final Discharge Diagnosis (Prints w/discharge instructions): Acute gallstone pancreatitis status post laparoscopic cholecystectomy, elevated transaminases, hyperbilirubinemia, obesity. Time spent for discharge: 45 min Core Measure Documentation - Palliative Care Palliative Care/ Comfort Measures: Not Applicable - Core Measures Any of the following diagnoses?: none Exam - Constitutional Vitals: Temp Pulse Resp BP Pulse Ox 97.9 F 67 15 110/58 97 01/02/22 04:58 01/02/22 04:58 01/02/22 04:58 01/02/22 04:58 01/02/22 04:58 General appearance: Present: no acute distress, well-nourished, obese - EENT Eyes: Present: PERRL, EOM intact ENT: hearing intact, clear oral mucosa, dentition normal - Neck Neck: Present: supple, normal ROM - Respiratory Respiratory effort: normal Respiratory: bilateral: CTA - Cardiovascular Rhythm: regular Heart Sounds: Present: S1 & S2 - Extremities Extremities: no ischemia, pulses intact, pulses symmetrical, No edema, normal temperature, normal color, Full ROM Peripheral Pulses: within normal limits - Abdominal General gastrointestinal: Present: soft, tender (Appropriate tenderness of right upper quadrant at surgical site), non-distended, normal bowel sounds Female genitourinary: Present: deferred - Rectal Rectal Exam: deferred - Integumentary Integumentary: Present: clear, warm, dry - Musculoskeletal Musculoskeletal: strength equal bilaterally - Psychiatric Psychiatric: appropriate mood/affect, intact judgment & insight, memory intact, cooperative - Neurologic Neurologic: CNII-XII intact, moves all extremities - Allied Health Allied health notes reviewed: nursing Plan Activity: no restrictions Additional Instructions: Patient is a 21-year-old female with past medical history significant for obesity who presented with 1 week of right upper quadrant tenderness that progressively worsened to epigastric pain rated 8 out of 10. Patient also endorsed having nausea and worsening abdominal cramping with meals. She described the pain as sharp and piercing in nature. In the ED the patient was found to be hemodynamically stable, and her labs were remarkable for a leukocytosis of 11.9 and lipase 3371. Patient underwent CT abdomen and pelvis without contrast that was remarkable for acute pancreatitis. Patient also underwent abdominal ultrasound revealing "biliary ductal dilatation; cholelithiasis without evidence of acute cholecystitis; hepatic steatosis". Gastroenterology was consulted for further management. Patient underwent MRCP that was unremarkable for retained common bile duct stones. General surgery was consulted, and the patient underwent laparoscopic cholecystectomy on 01/01/2022 without incident. Patient is relatively pain-free. Patient will follow up with general surgery in the outpatient setting in approximately 1 week via tele- visit. Patient expressed understanding. Patient is medically clear for discharge. Care Plan Goals: Patient is medically clear for discharge. Assessment: Patient is a 21-year-old female with past medical history significant for obesity who presented with 1 week of right upper quadrant tenderness that progressively worsened to epigastric pain rated 8 out of 10. Patient also endorsed having nausea and worsening abdominal cramping with meals. She described the pain as sharp and piercing in nature. In the ED the patient was found to be hemodynamically stable, and her labs were remarkable for a leukocytosis of 11.9 and lipase 3371. Patient underwent CT abdomen and pelvis without contrast that was remarkable for acute pancreatitis. Patient also underwent abdominal ultrasound revealing "biliary ductal dilatation; cholelithiasis without evidence of acute cholecystitis; hepatic steatosis". Gastroenterology was consulted for further management. Patient underwent MRCP that was unremarkable for retained common bile duct stones. General surgery was consulted, and the patient underwent laparoscopic cholecystectomy on 01/01/2022 without incident. Patient is relatively pain-free. Patient will follow up with general surgery in the outpatient setting in approximately 1 week via tele- visit. Patient expressed understanding. Patient is medically clear for discharge. Follow up with: SUSANA OSORIO MD [Primary Care Provider] - 3-5 Days SHARON BOB MD [Staff Physician] - 7 Days Prescriptions: HYDROcodone/APAP 5-325 [[place] 5/325] 1 each PO Q6HR PRN #16 tablet PRN Reason: Pain
== END 2022-01-02 13:46 | disposition home or self-care (01) | DRG 417 ==
LOC: ED 08:00 → 3A 22:22 → 4A 23:36
PROVIDERS: ADMIT Internal Medicine; ATTEND Student in an Organized Health Care Education/Training Program
PROC: 0FT44ZZ Resection of Gallbladder, Percutaneous Endoscopic Approach (ICD-10-PCS; principal; 2022-01-01)
PROC: BF131ZZ Fluoroscopy of Gallbladder and Bile Ducts using Low Osmolar Contrast (ICD-10-PCS; 2022-01-01)
DX: K80.20 Calculus of gallbladder without cholecystitis without obstruction (principal); K85.10 Biliary acute pancreatitis without necrosis or infection; E66.9 Obesity, unspecified; Z68.32 Body mass index [BMI] 32.0-32.9, adult
CPT/HCPCS: 36415; 74176; 74181; 74300; 76705; 80053; 81001; 83690; 85025; 88304; G0378; J3490; J1100; J1170; J1610; J1644; J1885; J2250; J2270; J2405; J2543; J2704; J3010; J7030; J7120; Q9967